=== PATIENT | female | born 1965 | race Caucasian/White ===

== ENCOUNTER 2016-07-06 06:58 | Outpatient (CLI) | payer OTHER | END 2016-07-06 06:59 | disposition home or self-care (01) | DX: E78.5 Hyperlipidemia, unspecified (principal); E03.9 Hypothyroidism, unspecified ==

== ENCOUNTER 2016-08-22 08:45 | Outpatient (CLI) | payer OTHER | END 2016-08-22 08:46 | disposition home or self-care (01) | DX: G47.33 Obstructive sleep apnea (adult) (pediatric) (principal) ==

== ENCOUNTER 2016-11-13 15:47 | Outpatient (CLI) | payer OTHER | END 2016-11-13 15:48 | disposition home or self-care (01) | LOC: SC 15:47 | PROVIDERS: ATTEND Nurse Practitioner Family | DX: G47.33 Obstructive sleep apnea (adult) (pediatric) (principal) | CPT/HCPCS: 99212; 99214 ==

== ENCOUNTER 2017-04-23 07:04 | Outpatient (CLI) | payer OTHER ==
--- NOTE | 2017-04-24 10:25 | Mammography Report ---
DIGITAL SCREENING MAMMOGRAM: 04/23/2017 COMPARISON: 10/24/2015, 08/20/2012, 03/01/2011, 10/24/2009. TECHNIQUE: Bilateral digital CC and MLO projections. FINDINGS: There is extensive fatty replacement of the breast tissue. There is no dominant mass, arch itectural distortion, skin thickening, suspicious microcalcifications, or interval change. IMPRESSION: NEGATIVE. BIRADS CATEGORY 1-NEGATIVE. RECOMMENDATION: SUGGEST RETURN TO ROUTINE SCREENING IN 12 MONTHS. STANDARD QUALIFYING STATEMENTS 1. This examination was reviewed with the aid of Computer-Aided Detection (CAD). 2. A negative or benign imaging report should not delay biopsy if clinically suspicious findings are present. Consider surgical consultation if warranted. More than 5% of cancers are not identified by i maging. 3. Dense breasts may obscure an underlying neoplasm. JOB #: [id number] EXT JOB #:[id number]
== END 2017-04-23 07:05 | disposition home or self-care (01) ==
LOC: DI 07:04
PROVIDERS: ATTEND Family Medicine
DX: Z12.31 Encounter for screening mammogram for malignant neoplasm of breast (principal)
CPT/HCPCS: 77067

== ENCOUNTER 2017-09-02 07:17 | Outpatient (CLI) | payer OTHER ==
[2017-09-02 07:41] LABS: BASOPHILS # (AUTO) 0.1 10^3/uL (0.0-0.1); BASOPHILS % (AUTO) 1.1 %; EOSINOPHILS # (AUTO) 0.2 10^3/uL (0.0-0.7); EOSINOPHILS % (AUTO) 3.3 %; HGB - HEMOGLOBIN 12.8 g/dL (12.0-16.0); LYMPHOCYTES # (AUTO) 1.3 10^3/uL (1.5-3.5); LYMPHOCYTES % (AUTO) 21.7 %; MEAN CORPUSCULAR HEMOGLOBIN 29.8 pg (27.0-31.0); MEAN CORPUSCULAR HGB CONC 33.7 g/dL (32.0-36.0); MEAN CORPUSCULAR VOLUME 88.4 fL (81.0-99.0); MEAN PLATELET VOLUME 11.7 fL (7.9-10.8); MONOCYTES # (AUTO) 0.5 10^3/uL (0.0-1.0); MONOCYTES % (AUTO) 8.4 %; NEUTROPHILS # (AUTO) 3.8 10^3/uL (1.5-6.6); NEUTROPHILS % (AUTO) 65.5 %; PLT - PLATELET COUNT 142 10^3/uL (130-450); RED BLOOD COUNT 4.31 10^6/uL (4.20-5.40); RED CELL DISTRIBUTION WIDTH 13.3 % (12.0-15.0); WHITE BLOOD COUNT 5.8 x10^3/uL (4.8-10.8)
[2017-09-02 08:02] LABS: ALBUMIN/GLOBULIN RATIO 1.1 (1.0-2.2); ALKALINE PHOSPHATASE 55 IU/L (42-121); ALT ALANINE AMINOTRANSFERASE 23 IU/L (10-60); AST ASPARTATE AMINOTRANSFERASE 20 IU/L (10-42); BILIRUBIN,TOTAL 0.9 mg/dL (0.2-1.0); BUN - BLOOD UREA NITROGEN 17 mg/dL (6-20); CALCIUM 9.1 mg/dL (8.5-10.3); CARBON DIOXIDE - CO2 23 mmol/L (21-32); CHLORIDE 104 mmol/L (101-111); CHOL/HDL RATIO 4.6 (<4.4); CHOLESTEROL 185 mg/dL; CREATININE 0.7 mg/dL (0.4-1.0); GFR - MDRD 88 (>89); GLUCOSE 109 mg/dL (70-100); HDL CHOLESTEROL 40 mg/dL; LDL CHOLESTEROL,CALCULATED 119 mg/dL; SODIUM 135 mmol/L (135-145); TOTAL PROTEIN 7.7 g/dL (6.7-8.2); VLDL CHOLESTEROL 26 mg/dL
[2017-09-02 10:06] LABS: THYROID STIMULATING HORMONE 3.6 uIU/mL (0.34-5.60)
[2017-09-02 10:09] LABS: FREE T4 (FREE THYROXINE) 1.06 ng/dL (0.58-1.64)
== END 2017-09-02 07:18 | disposition home or self-care (01) ==
LOC: LAB 07:17
PROVIDERS: ATTEND Family Medicine
DX: Z00.00 Encounter for general adult medical examination without abnormal findings (principal); I10 Essential (primary) hypertension; E78.5 Hyperlipidemia, unspecified; E03.9 Hypothyroidism, unspecified
CPT/HCPCS: 36415; 80053; 80061; 83721; 84439; 84443; 85025

== ENCOUNTER 2017-09-27 11:21 | Outpatient (CLI) | payer OTHER | END 2017-09-27 11:22 | disposition home or self-care (01) | LOC: DI 11:21 | PROVIDERS: ATTEND Family Medicine | DX: I10 Essential (primary) hypertension (principal); I51.7 Cardiomegaly | CPT/HCPCS: 93306 ==

== ENCOUNTER 2018-01-27 13:44 | Outpatient (CLI) | payer OTHER | END 2018-01-27 13:45 | disposition home or self-care (01) | LOC: SC 13:44 | PROVIDERS: ATTEND Nurse Practitioner Family | DX: G47.33 Obstructive sleep apnea (adult) (pediatric) (principal) | CPT/HCPCS: 99212; 99214 ==

== ENCOUNTER 2018-06-20 07:37 | Outpatient (CLI) | payer BC ==
[2018-06-20 08:33] LABS: ALBUMIN 4.2 g/dL (3.2-5.5); ALBUMIN/GLOBULIN RATIO 1.1 (1.0-2.2); ALKALINE PHOSPHATASE 56 IU/L (42-121); ALT ALANINE AMINOTRANSFERASE 40 IU/L (10-60); AST ASPARTATE AMINOTRANSFERASE 33 IU/L (10-42); BILIRUBIN,TOTAL 0.7 mg/dL (0.2-1.0); BUN - BLOOD UREA NITROGEN 18 mg/dL (6-20); CALCIUM 9.7 mg/dL (8.5-10.3); CARBON DIOXIDE - CO2 25 mmol/L (21-32); CHLORIDE 102 mmol/L (101-111); CHOL/HDL RATIO 4.3 (<4.4); CHOLESTEROL 213 mg/dL; CREATININE 0.8 mg/dL (0.4-1.0); GFR - MDRD 75 (>89); GLUCOSE 105 mg/dL (70-100); HDL CHOLESTEROL 50 mg/dL; LDL CHOLESTEROL,CALCULATED 142 mg/dL; LDL/HDL RATIO 2.8 (<4.4); SODIUM 136 mmol/L (135-145); TOTAL PROTEIN 8.1 g/dL (6.7-8.2); VLDL CHOLESTEROL 21 mg/dL
== END 2018-06-20 07:38 | disposition home or self-care (01) ==
LOC: LAB 07:37
PROVIDERS: ATTEND Family Medicine
DX: E78.5 Hyperlipidemia, unspecified (principal); E03.9 Hypothyroidism, unspecified
CPT/HCPCS: 36415; 80053; 80061; 83721; 84443

== ENCOUNTER 2019-06-06 05:32 | Emergency (ER) | payer BC ==
[2019-06-06] MEDS ORDERED: HYDROmorphone 1 MG/ML CARPUJECT IVP STA (06:46)
[2019-06-06] MEDS ORDERED: ONDANSETRON 4 MG/2 ML VIAL IVP STA (06:46)
[2019-06-06] MEDS ORDERED: SODIUM CHLORIDE 0.9% 1,000 ML IV STA (06:46)
[2019-06-06 07:04] LABS: BASOPHILS # (AUTO) 0.1 10^3/uL (0.0-0.1); EOSINOPHILS # (AUTO) 0.3 10^3/uL (0.0-0.7); EOSINOPHILS % (AUTO) 3.5 %; HGB - HEMOGLOBIN 13.8 g/dL (12.0-16.0); LYMPHOCYTES # (AUTO) 1.3 10^3/uL (1.5-3.5); LYMPHOCYTES % (AUTO) 18.4 %; MEAN CORPUSCULAR HEMOGLOBIN 29.7 pg (27.0-31.0); MEAN CORPUSCULAR HGB CONC 32.5 g/dL (32.0-36.0); MEAN CORPUSCULAR VOLUME 91.4 fL (81.0-99.0); MEAN PLATELET VOLUME 13.6 fL (7.9-10.8); MONOCYTES # (AUTO) 0.6 10^3/uL (0.0-1.0); MONOCYTES % (AUTO) 7.9 %; NEUTROPHILS # (AUTO) 4.9 10^3/uL (1.5-6.6); NEUTROPHILS % (AUTO) 68.6 %; PLT - PLATELET COUNT 173 10^3/uL (130-450); RED BLOOD COUNT 4.64 10^6/uL (4.20-5.40); RED CELL DISTRIBUTION WIDTH 12.9 % (12.0-15.0); WHITE BLOOD COUNT 7.2 x10^3/uL (4.8-10.8)
[2019-06-06 07:21] LABS: CALCIUM 9.7 mg/dL (8.5-10.3); CREATININE 0.8 mg/dL (0.4-1.0)
--- NOTE | 2019-06-06 07:54 | CT Report ---
Reason: headache Procedure Date: 06/06/2019 Accession Number: [id number] / [id number] Procedure: CT - HEAD WO CPT Code: Preliminary Report FULL RESULT: EXAM: CT HEAD EXAM DATE: 06/06/2019 07:27 AM. CLINICAL HISTORY: Headache. COMPARISON: None. TECHNIQUE: Multiaxial CT images were obtained from the foramen magnum to the vertex. Reformats: Sagittal and coronal. IV contrast: None. In accordance with CT protocol optimization, one or more of the following dose reduction techniques were utilized for this exam: automated exposure control, adjustment of mA and/or KV based on patient size, or use of iterative reconstructive technique. Findings: Relevant images are indicated (image number, series number). There is no hemorrhage, mass or midline shift. There is no significant cortical atrophy. There is no white matter disease. Ventricles are not dilated. Direct right cyst at the torcula, benign finding. Orbital contents negative. Basal cisterns unremarkable. Paranasal sinuses, mastoid air cells are unremarkable. Skull base intact, calvarium intact/unremarkable. Impressions: 1. Negative as detailed. RADIA
[2019-06-06] MEDS ORDERED: KETOROLAC 30 MG/ML VIAL IVP STA (08:36)
--- NOTE | 2019-06-06 08:36 | ED Physician Documentation ---
PD HPI HEADACHE - Stated complaint Stated Complaint: VOMITING - Chief complaint Chief Complaint: Abd Pain - History obtained from History obtained from: Patient - History of Present Illness Timing - onset: Yesterday (21:00) Timing - onset during: Rest Timing - details: Gradual onset, Constant Pain level now: 8 Location: Back, Right, Left Quality: Throbbing, Aching Associated symptoms: Nausea, Vomiting. No: Fever, Weakness, Numbness, Vision changes Improved by: Dark room Worsened by: Light Contributing factors: No: Anticoagulated Similar symptoms before: No diagnosis Recently seen: Not recently seen Review of Systems Constitutional: reports: Reviewed and negative Eyes: reports: Photophobia. denies: Loss of vision, Decreased vision GI: reports: Nausea, Vomiting. denies: Abdominal Pain Musculoskeletal: denies: Neck pain Neurologic: reports: Headache. denies: Generalized weakness, Focal weakness, Numbness PD PAST MEDICAL HISTORY - Past Medical History Past Medical History: Yes Cardiovascular: Hypertension, High cholesterol, Murmur Endocrine/Autoimmune: HyPOthyroidism, Other - Past Surgical History Past Surgical History: Yes General: Other - Present Medications Home Medications: Ambulatory Orders Medication Instructions Recorded Confirmed Amoxicillin/Potassium Clav 1 tab PO BID 04/10/14 04/10/14 [Augmentin 875-125 Tablet] Azithromycin [Zithromax] 250 mg PO DAILY #6 tablet 04/10/14 Levothyroxine [Synthroid] 200 mcg PO DAILY 04/10/14 04/10/14 Promethazine [Phenergan] 25 mg PO Q6H PRN #15 tab 04/10/14 Hydrocodone/Acetaminophen 1 - 2 each PO Q6H PRN #14 tablet 06/06/19 [Hydrocodon-Acetaminophen 5-325] Ondansetron Odt [Zofran] 4 mg TL Q6H PRN #14 tablet 06/06/19 - Allergies Allergies/Adverse Reactions: Allergies Allergy/AdvReac Type Severity Reaction Status Date / Time No Known Drug Allergies Allergy Verified 06/06/19 05:39 - Social History Does the pt smoke?: No Smoking Status: Never smoker Does the pt drink ETOH?: Yes Does the pt have substance abuse?: No - Immunizations Immunizations are current?: Yes - POLST Patient has POLST: Yes PD ED PE NORMAL - Vitals Vital signs reviewed: Yes - General General: Alert and oriented X 3, No acute distress, Well developed/nourished - HEENT HEENT: PERRL, EOMI - Neck Neck: Supple, no meningeal sign - Cardiac Cardiac: RRR, No murmur - Respiratory Respiratory: No respiratory distress, Clear bilaterally - Neuro Neuro: Alert and oriented X 3, director appointment 2-12 intact, No motor deficit, No sensory deficit, Normal speech Eye Opening: Spontaneous Motor: Obeys Commands Verbal: Oriented GCS Score: 15 Results - Vitals Vitals: Oxygen O2 Source Room air - Labs Labs: Laboratory Tests 06/06/19 06/06/19 06:55 06:55 WBC 7.2 RBC 4.64 Hgb 13.8 Hct 42.4 MCV 91.4 MCH 29.7 MCHC 32.5 RDW 12.9 Plt Count 173 MPV 13.6 H Neut # (Auto) 4.9 Lymph # (Auto) 1.3 L [place] # (Auto) 0.6 Eos # (Auto) 0.3 Baso # (Auto) 0.1 Absolute Nucleated RBC 0.00 Nucleated RBC % 0.0 Sodium 139 Potassium 4.3 Chloride 104 Carbon Dioxide 23 Anion Gap 12.0 BUN 15 Creatinine 0.8 Estimated GFR (MDRD) 75 L Glucose 153 H Calcium 9.7 - Rads (name of study) CT head Radiology: Prelim report reviewed, See rad report PD MEDICAL DECISION MAKING - ED course Complexity details: reviewed results, re-evaluated patient, considered differential, d/w patient ED course: on reevaluation, after tests resulted, patient is in NAD and reports significant improvement in symptoms. results d/w patient including arachnoid cyst on CT. no previous CT available for comparison, and patient does not recall ever having this test performed before. this finding can be followed up in outpatient setting. Departure - Departure Disposition: 01 Home, Self Care Clinical Impression: Arachnoid cyst Headache Qualifiers: Headache type: unspecified Headache chronicity pattern: acute headache Intractability: not intractable Qualified Code(s): R51 - Headache Condition: Good Instructions: ED Cephalgia Unspecified Follow-Up: Madisyn Bray MD [Primary Care Provider] - Prescriptions: Hydrocodone/Acetaminophen [Hydrocodon-Acetaminophen 5-325] 1 - 2 each PO Q6H PRN #14 tablet PRN Reason: pain Ondansetron Odt [Zofran] 4 mg TL Q6H PRN #14 tablet PRN Reason: Nausea / Vomiting Comments: The CT scan of your head shows a benign cyst called arachnoid cyst. While this is a benign finding (not a malignancy), it could be contributing to, or causing, your headache. If your headache continue or progress, your doctor might order further tests and other treatment might be necessary. Most patients with this finding do not have symptoms, and of those who do (headache is the most common symptom), most do not need treatment beyond control of the symptoms. As we discussed, you should follow up with doctor even if your headache resolves Discharge Date/Time: 06/06/19 09:10
[2019-06-06 08:58] VITALS: BP 138/79
== END 2019-06-06 09:10 | disposition home or self-care (01) ==
LOC: ED 05:32
DX: G93.0 Cerebral cysts (principal); R51 Headache; I10 Essential (primary) hypertension
CPT/HCPCS: 36415; 70450; 80048; 85025; 96361; 96374; 96375; 99284; J1170

== ENCOUNTER 2019-10-08 16:38 | Outpatient (CLI) | payer BC ==
--- NOTE | 2019-10-08 16:32 | SLEEP CARE CONSULTATION ---
Information from patient questionnaire entered by Gnei Henriquez. I have reviewed and concur with the information entered by Geni Henriquez. This document represents the service I personally performed and the decisions made by me, Deedee Mensah, RN, MSN, [employer]. History of Present Illness Service Date and Time: 10/08/2019 1600 Previous diagnosis: Moderate, Obstructive Sleep Apnea-Hypopnea Syndrome AHI: 15.8 (in 2009) Reason for follow up: annual (last seen 2018) Equipment type: CPAP Equipment obtained from: [facility] (needs new prescription) Mask style: Nasal pillows Backup mask available: Yes (old mask ) Last cushion change: 2 months Prior sleep studies: Yes Year and Where: 2009 - [facility] Sleep Type of Sleep Study: Polysomnography CPAP Compliance Data - Data Reviewed with Patient Average duration of nightly device use: 8.5 Compliance rate %: 99.4 (180 days) Current pressure setting (cmH2O): 9 Humidity settin Heated hose settin Average residual AHI: 1.4 Average large leak: 3 min 14 sec Subjective Patient concerns: reports: mask leak noise (occasional when mask needs changed), dry mouth, nose, throat (waking with dry mouth - 2 to 3 times a weeks for last few months ). denies: aerophagia, mask discomfort, air blowing in eyes, condensation in mask/hose, nasal congestion, epistaxis, other Observed to snore while using device: No (sleeps alone ) Current pressure setting perceived as: comfortable On therapy, patient: reports: sleeping better, awakening more refreshed, being more awake and alert during the day, more rested overall. denies: drowsiness while driving Initial [place] Sleepiness Scale score: 7 (in 2009) Allergies and Home Medications Home medication list reviewed: No (increased statin dose ) Review of Systems Review of systems same as previous: Yes Physical Exam Height: 5 ft 8 in Weight: 290 lb (home weight) Body Mass Index: 44.1 BMI Classification: Morbidly Obese Impression and Plan 1. Obstructive Sleep Apnea-Hypopnea Syndrome, moderate, with good treatment compliance and good apnea control. On CPAP therapy, the patient has better sleep quality and is more rested overall. Patient is pleased with benefit of treatment. Her oral dryness can be reduced by adjusting heated hose lower or by adjusting both settings with rationale discussed why to change. Patient advised that chronic oral dryness can affect dental health and advised to follow up with dentist. In addition, there are oral dryness products that can be used to reduce dryness such as Biotene products, Dry mouth rinse and Xylomelts. Patient to discuss best option with dentist.Patient has maintained her weight. Currently patients BMI is 44.8 obesity class . I counseled patient of how obesity increases the risk of apnea, CPAP pressure requirements and overall health risks especially cardiovascular and diabetes. Thus patient is advised to lose weight. She has struggled to lose weight. I explained how the right president sales and marketing can be helpful in achieving optimal weight loss goals. I have had several patients benefit in reducing significant weight with president sales and marketing consult and on going coaching. Patient encouraged to discuss their weight loss goals with their PCP and consider a referral to a president sales and marketing. She agreed with plan. The patient's CPAP pressure was changed to 7-9 cmH2O to accommodate future weight loss. Symptoms to report for additional pressure adjustment discussed. Patient's apnea severity and rationale for treatment to reduce apnea, improve sleep quality and reduce cardiovascular and cerebrovascular events was reviewed. * Change to auto CPAP pressure to 7-9 cmH2O * Implement methods to reduce oral dryness. * Notify me if snoring with mask or feeling that the pressure is too much or too little * Attempt to lose weight * Follow up with PCP for president sales and marketing referral * Call this office if any problems using CPAP * Update supplies * Return for follow up in 1 year , or sooner if concerns arise Visit Type: Telehealth Video (to reduce risk of Covid 19 exposure) Video Type: [employer] Patient Location: Home Location of Provider: Home Patient agrees and consents to this telehealth visit type: Yes Patient agrees to have their insurance billed: Yes Time Spent with Patient (minutes): 13 Provider Statement: I spent 100% of the Telehealth Video Call with the patient with greater than 50% spent counseling the patient and coordination of care.
== END 2019-10-08 16:39 | disposition home or self-care (01) ==
LOC: SC 16:38
PROVIDERS: ATTEND Nurse Practitioner Family
DX: G47.33 Obstructive sleep apnea (adult) (pediatric) (principal); E66.01 Morbid (severe) obesity due to excess calories; Z68.41 Body mass index [BMI] 40.0-44.9, adult

== ENCOUNTER 2020-05-04 07:42 | Outpatient (CLI) | payer BC ==
[2020-05-04 08:30] LABS: BASOPHILS # (AUTO) 0.1 10^3/uL (0.0-0.1); BASOPHILS % (AUTO) 0.9 %; EOSINOPHILS # (AUTO) 0.2 10^3/uL (0.0-0.7); EOSINOPHILS % (AUTO) 3.7 %; HGB - HEMOGLOBIN 13.6 g/dL (12.0-16.0); LYMPHOCYTES # (AUTO) 1.2 10^3/uL (1.5-3.5); LYMPHOCYTES % (AUTO) 20.6 %; MEAN CORPUSCULAR HGB CONC 33.3 g/dL (32.0-36.0); MEAN CORPUSCULAR VOLUME 90.1 fL (81.0-99.0); MEAN PLATELET VOLUME 13.2 fL (7.9-10.8); MONOCYTES # (AUTO) 0.7 10^3/uL (0.0-1.0); NEUTROPHILS # (AUTO) 3.6 10^3/uL (1.5-6.6); NEUTROPHILS % (AUTO) 62.4 %; PLT - PLATELET COUNT 181 10^3/uL (130-450); RED BLOOD COUNT 4.54 10^6/uL (4.20-5.40); RED CELL DISTRIBUTION WIDTH 12.8 % (12.0-15.0); WHITE BLOOD COUNT 5.7 x10^3/uL (4.8-10.8)
[2020-05-04 08:43] LABS: ALBUMIN 4.2 g/dL (3.2-5.5); ALKALINE PHOSPHATASE 74 IU/L (42-121); ALT ALANINE AMINOTRANSFERASE 50 IU/L (10-60); AST ASPARTATE AMINOTRANSFERASE 39 IU/L (10-42); BUN - BLOOD UREA NITROGEN 17 mg/dL (6-20); CALCIUM 9.6 mg/dL (8.5-10.3); CARBON DIOXIDE - CO2 24 mmol/L (21-32); CHLORIDE 103 mmol/L (101-111); CHOL/HDL RATIO 3.5 (<4.4); CHOLESTEROL 166 mg/dL; CREATININE 0.7 mg/dL (0.4-1.0); GLUCOSE 106 mg/dL (70-100); HDL CHOLESTEROL 47 mg/dL; LDL CHOLESTEROL,CALCULATED 93 mg/dL; SODIUM 139 mmol/L (135-145); TOTAL PROTEIN 8.5 g/dL (6.7-8.2); VLDL CHOLESTEROL 26 mg/dL
[2020-05-04 08:53] LABS: THYROID STIMULATING HORMONE < 0.08 uIU/mL (0.34-5.60)
[2020-05-04 08:55] LABS: FREE T4 (FREE THYROXINE) 1.46 ng/dL (0.58-1.64)
[2020-05-04 12:45] LABS: HEMOGLOBIN A1c% 5.9 % (4.27-6.07)
== END 2020-05-04 07:43 | disposition home or self-care (01) ==
LOC: LAB 07:42
PROVIDERS: ATTEND Family Medicine
DX: R73.01 Impaired fasting glucose (principal); I10 Essential (primary) hypertension; E78.5 Hyperlipidemia, unspecified; E03.9 Hypothyroidism, unspecified
CPT/HCPCS: 36415; 80053; 80061; 83036; 83721; 84439; 84443; 85025

== ENCOUNTER 2020-05-16 13:09 | Emergency (ER) | payer BC ==
[2020-05-16] MEDS ORDERED: MECLIZINE 12.5 MG TABLET PO STA (14:18)
--- NOTE | 2020-05-16 14:20 | ED Physician Documentation ---
PD HPI FOCAL NEURO - Stated complaint Stated Complaint: DIZZINESS - Chief complaint Chief Complaint: Neuro - History obtained from History obtained from: Patient - History of Present Illness Timing - onset: How many days ago (3) Timing - duration: Days (3) Timing - details: Gradual onset, Intermittant Severity of deficit: Moderate Weakness: No: Face, Arm, Hand, Leg, Foot, Right, Left, Other Numbness: No: Face, Arm, Hand, Leg, Foot, Right, Left Associated symptoms: Other (room spinning) Baseline status: positive: A&OX3, ambulatory, indep - Additional information Additional information: 55-year-old female presents to the emergency department complaining of the room spinning for the past 3 days. Intermittent. Worse with movement. Better with remaining still. No recent illnesses. No fever. No cough. No numbness or tingling. No headache. No trauma. Has not taken anything for this. No changes to her medications. Does not feel lightheaded. Does not feel near syncopal. No difficulty with walking. Review of Systems Ten Systems: 10 systems reviewed and negative Constitutional: denies: Fever, Chills Cardiac: denies: Chest pain / pressure Respiratory: denies: Cough GI: denies: Abdominal Pain, Nausea, Vomiting, Diarrhea Skin: denies: Rash Musculoskeletal: denies: Neck pain, Back pain Neurologic: denies: Headache PD PAST MEDICAL HISTORY - Past Medical History Cardiovascular: Hypertension, High cholesterol, Murmur Endocrine/Autoimmune: HyPOthyroidism, Other - Past Surgical History Past Surgical History: Yes General: Other - Present Medications Home Medications: Ambulatory Orders Medication Instructions Recorded Confirmed Levothyroxine [Synthroid] 175 mcg PO DAILY 04/10/14 05/16/20 Promethazine [Phenergan] 25 mg PO Q6H PRN #15 tab 04/10/14 05/16/20 Hydrochlorothiazide 12.5 mg PO DAILY 05/16/20 05/16/20 Losartan [Cozaar] 50 mg PO DAILY 05/16/20 05/16/20 Meclizine HCl [Antivert] 25 mg PO Q6HR PRN #20 tablet 05/16/20 Metoprolol Succinate [Toprol Xl] 25 mg PO DAILY 05/16/20 05/16/20 Simvastatin [Zocor] 40 mg ORAL DAILY 05/16/20 05/16/20 Venlafaxine ER [Effexor ER] 37.5 mg PO DAILY 05/16/20 05/16/20 - Allergies Allergies/Adverse Reactions: Allergies Allergy/AdvReac Type Severity Reaction Status Date / Time No Known Drug Allergies Allergy Verified 05/16/20 13:28 - Social History Does the pt smoke?: No Smoking Status: Never smoker Does the pt drink ETOH?: Yes Does the pt have substance abuse?: No - Immunizations Immunizations are current?: Yes - POLST Patient has POLST: Yes PD ED PE NORMAL - Vitals Vital signs reviewed: Yes - General General: Alert and oriented X 3, No acute distress, Well developed/nourished - HEENT HEENT: PERRL, Ears normal, Moist mucous membranes, Pharynx benign - Neck Neck: Supple, no meningeal sign, No bony TTP, No adenopathy - Cardiac Cardiac: RRR - Respiratory Respiratory: No respiratory distress, Clear bilaterally - Abdomen Abdomen: Soft, Non tender, Non distended - Derm Derm: Warm and dry - Extremities Extremities: Normal ROM s pain, No edema - Neuro Neuro: Alert and oriented X 3, fryer operator 2-12 intact, No motor deficit, No sensory deficit, Normal speech, Other (Positive horizontal nystagmus to the left.) Eye Opening: Spontaneous Motor: Obeys Commands Verbal: Oriented GCS Score: 15 - Psych Psych: Normal mood, Normal affect, Other (Normal cerebellar testing) NIHSS - Time Time: 14:12 - Level of Consciousness Level of consciousness: (0) Alert, Keenly responsive LOC Questions: (0) Answers both Q's correct LOC Commands: (0) Performs both correctly - Gaze Best Gaze: (0) Normal - Visual Visual: (0) No loss - Facial Palsy Facial Palsy: (0) Normal, symmetrical movement - Motor Arms (both separate) Motor Arm (right): (0) No drift Motor Arm (left): (0) No drift - Motor Legs (both separate) Motor Leg (right): (0) No drift Motor Leg (left): (0) No drift - Limb Ataxia Limb Ataxia: (0) Absent - Sensory Sensory: (0) Normal - Best Language Best Language: (0) No aphasia - Dysarthria Dysarthria: (0) Normal - Extinction and Inattention (formally neg Extinction and inattention: (0) No abnormality - Total Score/Results Total Score/Result: 0 Results - Vitals Vitals: Vital Signs - 24 hr 05/16/ 13:28 Temperature 37 C Heart Rate 69 Respiratory 18 Rate Blood Pressure 134/80 H O2 Saturation 98 Oxygen O2 Source Room air PD MEDICAL DECISION MAKING - ED course Complexity details: re-evaluated patient, considered differential, d/w patient ED course: Symptoms improved with meclizine. No evidence of cerebellar stroke. No other focal neurological deficits. No rotary or vertical nystagmus. We will place on meclizine for home and have her follow-up with her doctor for further care. Patient counseled regarding signs and symptoms for which I believe and urgent re-evaluation would be necessary. Patient with good understanding of and agreement to plan and is comfortable going home at this time This document was made in part using voice recognition software. While efforts are made to proofread this document, sound alike and grammatical errors may occur. Departure - Departure Disposition: 01 Home, Self Care Clinical Impression: Vertigo Condition: Good Instructions: ED Vertigo Unspecified Follow-Up: Madisyn Bray MD [Primary Care Provider] - Prescriptions: Meclizine HCl [Antivert] 25 mg PO Q6HR PRN #20 tablet PRN Reason: Vertigo Comments: You can use the meclizine as needed for the vertigo. This should improve over the next few days. You can also try the half somersault maneuver or Rob maneuver at home. Return if you worsen
[2020-05-16 15:13] VITALS: BP 147/88
== END 2020-05-16 15:37 | disposition home or self-care (01) ==
LOC: ED 13:09
DX: R42 Dizziness and giddiness (principal); I10 Essential (primary) hypertension
CPT/HCPCS: 99282; 99284; A9270

== ENCOUNTER 2020-08-12 14:27 | Outpatient (CLI) | payer BC | END 2020-08-12 14:28 | disposition critical access hospital (66) | LOC: EMS 14:27 | PROVIDERS: ATTEND Emergency Medicine | DX: R07.9 Chest pain, unspecified (principal); R61 Generalized hyperhidrosis; R42 Dizziness and giddiness | CPT/HCPCS: A0425; A0429 ==

== ENCOUNTER 2020-08-12 14:39 | Emergency (ER) | payer BC ==
--- NOTE | 2020-08-12 14:50 | ED Physician Documentation ---
PD HPI CHEST PAIN - Stated complaint Stated Complaint: CP - Chief complaint Chief Complaint: Cardiac - History obtained from History obtained from: Patient, EMS - History of Present Illness Timing - onset: Today Timing - onset during: Light activity Timing - duration: Minutes (15) Timing - details: Abrupt onset Pain level max: 6 Pain level now: 0 Quality: Pressure, Tightness Location: Substernal Radiation: No: Jaw, Neck, Back, Abdominal, Left upper extremity, Right upper extremity Improved by: ASA Worsened by: No: Exertion, Inspiration, Eating, Movement, Palpation, Position Associated symptoms: Shortness of air, Nausea, Feeling faint / dizzy. No: Diaphoresis, Vomiting, General Weakness, Palpitations, Cough Similar symptoms before: Has not had sx before - Additional information Additional information: Patient is a 55-year-old female who presents to the emergency department with abrupt onset of chest pain, midline, nonradiating. Lasted about 15 minutes. Occurred while she was cooking dinner today. Resolved with aspirin with EMS. No cardiac history of acute coronary syndrome, stents or bypass. No recent travel. She states that recently her mother . Nothing made the symptoms better or worse. 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 - Present Medications Home Medications: Ambulatory Orders Medication Instructions Recorded Confirmed Levothyroxine [Synthroid] 175 mcg PO DAILY 04/10/14 08/12/20 Hydrochlorothiazide 12.5 mg PO DAILY 05/16/20 08/12/20 Losartan [Cozaar] 50 mg PO DAILY 05/16/20 08/12/20 Metoprolol Succinate [Toprol Xl] 25 mg PO DAILY 05/16/20 08/12/20 Simvastatin [Zocor] 40 mg ORAL DAILY 05/16/20 08/12/20 Venlafaxine ER [Effexor ER] 37.5 mg PO DAILY 05/16/20 08/12/20 - Allergies Allergies/Adverse Reactions: Allergies Allergy/AdvReac Type Severity Reaction Status Date / Time No Known Drug Allergies Allergy Verified 05/16/20 13:28 - Social History Does the pt smoke?: No Smoking Status: Never smoker Does the pt drink ETOH?: Yes Does the pt have substance abuse?: No - Immunizations Immunizations are current?: Yes - POLST Patient has POLST: Yes PD ED PE NORMAL - Vitals Vital signs reviewed: Yes - General General: Alert and oriented X 3, No acute distress - HEENT HEENT: PERRL, Moist mucous membranes - Neck Neck: Supple, no meningeal sign - Cardiac Cardiac: RRR, Strong equal pulses - Respiratory Respiratory: No respiratory distress, Clear bilaterally - Abdomen Abdomen: Soft, Non tender, Non distended - Derm Derm: Warm and dry - Extremities Extremities: No edema, No calf tenderness / cord - Neuro Neuro: Alert and oriented X 3 - Psych Psych: Normal mood, Normal affect Results - Vitals Vitals: Vital Signs - 24 hr 08/12/20 08/12/20 08/12/20 14:39 15:29 16:49 Temperature 36.7 C Heart Rate 80 83 80 Respiratory 25 H 22 18 Rate Blood Pressure 142/63 H 113/58 L 104/72 O2 Saturation 98 98 99 Oxygen O2 Source Room air - EKG (time done) 1441 Rate: Rate (enter#) (68) Rhythm: NSR [place]: Normal Intervals: Prolonged [place] QRS: Normal, LVH - Labs Labs: Laboratory Tests 08/12/20 08/12/20 08/12/20 15:06 15:06 15:06 WBC 7.5 RBC 4.63 Hgb 13.8 Hct 41.8 MCV 90.3 MCH 29.8 MCHC 33.0 RDW 12.5 Plt Count 182 MPV 13.0 H Neut # (Auto) 5.0 Lymph # (Auto) 1.5 [place] # (Auto) 0.7 Eos # (Auto) 0.2 Baso # (Auto) 0.0 Absolute Nucleated RBC 0.00 Nucleated RBC % 0.0 Sodium 138 Potassium 2.7 L Chloride 97 L Carbon Dioxide 31 Anion Gap 10.0 BUN 15 Creatinine 0.7 Estimated GFR (MDRD) 87 L Glucose 111 H Calcium 9.9 Total Bilirubin 0.4 AST 28 ALT 34 Alkaline Phosphatase 75 Troponin I High Sens 7.1 Total Protein 8.6 H Albumin 4.3 Globulin 4.3 H Albumin/Globulin Ratio 1.0 Lipase 35 08/12/20 16:53 WBC RBC Hgb Hct MCV MCH MCHC RDW Plt Count MPV Neut # (Auto) Lymph # (Auto) [place] # (Auto) Eos # (Auto) Baso # (Auto) Absolute Nucleated RBC Nucleated RBC % Sodium Potassium Chloride Carbon Dioxide Anion Gap BUN Creatinine Estimated GFR (MDRD) Glucose Calcium Total Bilirubin AST ALT Alkaline Phosphatase Troponin I High Sens 8.7 Total Protein Albumin Globulin Albumin/Globulin Ratio Lipase - Rads (name of study) cxr Radiology: Prelim report reviewed, EMP read contemporaneously, See rad report (no acute abnormalities) PD MEDICAL DECISION MAKING - ED course Complexity details: reviewed results, re-evaluated patient, considered differential (No ST elevation [place], no aortic dissection, no PE, no tension pneumothorax, no aortic aneurysm), d/w patient ED course: 55-year-old female with chest pain. No acute findings on laboratory testing, chest x-ray or EKG. Asymptomatic currently. Negative troponin x2. We will have her follow-up with her doctor for a cardiac stress test and start her on a baby aspirin. Did discuss observation, patient is comfortable going home at this time. Patient counseled regarding signs and symptoms for which I believe and urgent re-evaluation would be necessary. Patient with good understanding of and agreement to plan and is comfortable going home at this time This document was made in part using voice recognition software. While efforts are made to proofread this document, sound alike and grammatical errors may occur. Departure - Departure Disposition: 01 Home, Self Care Clinical Impression: Hypokalemia Chest pain Qualifiers: Chest pain type: unspecified Qualified Code(s): R07.9 - Chest pain, unspecified Condition: Good Instructions: ED Chest Pain Atypical Unkn Cause Follow-Up: Madisyn Bray MD [Primary Care Provider] - Within 1 week Comments: You should start back on a baby aspirin daily and have a cardiac stress test with your doctor. Your potassium was slightly low today as well, 2.7, you should have this rechecked with your doctor next week as well. Return if you worsen Discharge Date/Time: 08/12/20 17:48
--- NOTE | 2020-08-12 15:06 | XRAY Report ---
PROCEDURE: Chest 1 View X-Ray INDICATIONS: Chest pain TECHNIQUE: One view of the chest was acquired. COMPARISON: 04/10/2014 FINDINGS: Surgical changes and devices: None. Lungs and pleura: No pleural effusions or pneumothorax. Lungs are clear. Mediastinum: Mediastinal contours appear normal. Heart size is normal. Bones and chest wall: No suspicious bony lesions. Overlying soft tissues appear unremarkable. IMPRESSION: No acute cardiopulmonary process demonstrated radiographically. Reviewed by: David Souza MD on 08/12/2020 3:05 PM PDT Approved by: David Souza MD on 08/12/2020 3:05 PM PDT Station ID: [id number]
[2020-08-12 15:16] LABS: BASOPHILS % (AUTO) 0.5 %; EOSINOPHILS # (AUTO) 0.2 10^3/uL (0.0-0.7); EOSINOPHILS % (AUTO) 2.7 %; HCT - HEMATOCRIT 41.8 % (37.0-47.0); HGB - HEMOGLOBIN 13.8 g/dL (12.0-16.0); LYMPHOCYTES # (AUTO) 1.5 10^3/uL (1.5-3.5); LYMPHOCYTES % (AUTO) 19.7 %; MEAN CORPUSCULAR HEMOGLOBIN 29.8 pg (27.0-31.0); MEAN CORPUSCULAR VOLUME 90.3 fL (81.0-99.0); MONOCYTES # (AUTO) 0.7 10^3/uL (0.0-1.0); MONOCYTES % (AUTO) 9.4 %; NEUTROPHILS % (AUTO) 67.4 %; PLT - PLATELET COUNT 182 10^3/uL (130-450); RED BLOOD COUNT 4.63 10^6/uL (4.20-5.40); RED CELL DISTRIBUTION WIDTH 12.5 % (12.0-15.0); WHITE BLOOD COUNT 7.5 x10^3/uL (4.8-10.8)
[2020-08-12 15:33] LABS: ALBUMIN 4.3 g/dL (3.2-5.5); BILIRUBIN,TOTAL 0.4 mg/dL (0.2-1.0); CALCIUM 9.9 mg/dL (8.5-10.3); CREATININE 0.7 mg/dL (0.4-1.0); POTASSIUM 2.7 mmol/L (3.5-5.0); TOTAL PROTEIN 8.6 g/dL (6.7-8.2)
[2020-08-12] MEDS ORDERED: POTASSIUM CHLORIDE 20 MEQ TABLET PO STA (16:04)
[2020-08-12 16:52] VITALS: BP 104/72
== END 2020-08-12 17:48 | disposition home or self-care (01) ==
LOC: EDUNIT# → ED 14:39 → SUPCPDRO 14:39 → ED 17:48
DX: R07.9 Chest pain, unspecified (principal); I10 Essential (primary) hypertension; E87.6 Hypokalemia
CPT/HCPCS: 36415; 71045; 80053; 83690; 84484; 85025; 93005; 99284; A9270

== ENCOUNTER 2020-10-03 10:17 | Outpatient (CLI) | payer BC ==
[2020-10-03 10:57] LABS: CALCIUM 9.2 mg/dL (8.5-10.3); CREATININE 0.6 mg/dL (0.4-1.0); POTASSIUM 4.3 mmol/L (3.5-5.0)
== END 2020-10-03 10:18 | disposition home or self-care (01) ==
LOC: LAB 10:17
PROVIDERS: ATTEND Family Medicine
DX: E87.6 Hypokalemia (principal)
CPT/HCPCS: 36415; 80048

== ENCOUNTER 2020-10-13 12:21 | Outpatient (CLI) | payer BC ==
[2020-10-13] MEDS ORDERED: AMINOPHYLLINE 500 MG/20 ML VIAL ONE (12:58)
[2020-10-13] MEDS ORDERED: REGADENOSON 0.4 MG/5 ML SYRINGE IVP ONE ×2 (12:58→15:06)
--- NOTE | 2020-10-13 13:49 | CARDIAC PROCEDURE NOTE ---
Stress Test Report Service Date: 10/13/20 Ordering Provider: Dr Madisyn Bray Indication for Test: Chest pain Cardiac Risk Factors: Morbid obesity, hypertension, hyperlipidemia, family history of early heart disease. Type of Stress Test: Pharmacologic Stress Test with MPI Pharmacologic Agent: Lexiscan Procedure: After signing informed consent, the patient underwent a pharmaceutical stress test using Lexiscan, along with a 2-day protocol of Nuclear myocardial perfusion imaging. Resting heart rate: 63 Peak heart rate: 85 Resting BP: 116/58 Peak BP: 137/57 Lexiscan was infused per protocol. The patient had a brief headache, shortness of breath and mild nausea. There was no chest pain. The symptoms subsided spontaneously and 2 minutes. Oxygen saturation was 95 to 97% on room air throughout the test. EKG: Normal sinus rhythm, rate 63, first-degree block, left IVCD. EKG at peak: New T wave flattening is seen in leads II, III, aVF and V4 through V6. These T wave changes revert to baseline after 3 minutes. Summary: 1) Abnormal resting EKG. 2) Significant T wave changes develop suggesting inferolateral ischemia, during this pharmaceutical stress. 3) Nuclear images were reported separately and showed: "Abnormal myocardial perfusion study demonstrating a small stress phase perfusion defect in the anterior wall, this region is obscured by breast attenuation artifact in the rest phase and is not certain whether the small defect is fixed or reversible. Finding could be secondary to small area of reversible ischemia or small prior infarct." Normal overall LVEF at rest and with stress. IMPRESSION: 1) Small area of possible coronary ischemia. 2) This patient's overall cardiac risk: High. RECOMMENDATIONS: 1) Referral to Cardiology and consider coronary angiography. 2) Aggressive risk factor management.
--- NOTE | 2020-10-14 14:18 | Nuclear Medicine Report ---
PROCEDURE: Rest and exercise myocardial perfusion SPECT with gated imaging and ejection fraction INDICATIONS: CHEST PAIN; LEXISCAN RADIOPHARMACEUTICAL: 19.6 mCi Tc-99m Myoview IV at rest and 20.7 mCi Tc-99m Myoview IV at peak exerc ise. Lvu-avl-segtporo was performed. TECHNIQUE: Radiopharmaceutical was injected at peak stress test, and also at rest. SPECT images wer e obtained. SPECT myocardial perfusion images were displayed in short axis, horizontal long axis, an d vertical long axis views. Gated images were reviewed using Auto[employer] software. COMPARISON: None available. CARDIAC STRESS: A standard pharmacologic stress test was performed by the patient under the supervision of an attendi staff. The patient received 0.4 mg Lexiscan IV. Hemodynamic data: There is normal blood pressure and heart rate response to pharmacologic stress. Symptoms: Patient denied chest pain during pharmacologic stress. EKG: No diagnostic EKG changes of ischemia; no ectopy. FINDINGS: Raw data: There is good myocardial labeling by radiotracer. No significant motion artifacts. Lung- to-heart ratio is 3.2 (normal is less than 0.46 for tetrafosmin tracer). Left ventricle function: Gated images demonstrate normal left ventricle wall thickening. No segment al wall motion abnormality. No transient ischemic dilation; TID is 0.94 (normal less than 1.30). Th e left ventricle resting end-diastolic volume is 116 mL. Left ventricle stress ejection fraction is 78%; normal values are above 45%. Myocardial perfusion: There is normal distribution of activity in the left and right ventricular jamar cardium. There is a fixed perfusion defect in the mid-anterior wall. The majority of the fixed perfus ion defect in the anterior wall demonstrates normalization in the prone position compatible with soft tissue attenuation artifact, however there is a small persistent perfusion defect in the anterior wa ll in the prone position which does not completely normalize that is compatible with an area of decre ased stress perfusion. No additional fixed or reversible perfusion defects. IMPRESSION: 1. Abnormal myocardial perfusion study demonstrating a small stress phase perfusion defect in the ant erior wall. This region of the anterior wall is obscured by breast attenuation artifact in the rest p hase and is not certain whether the small defect is fixed or reversible. Finding could be secondary t o small area of reversible ischemia or small prior infarct. 2. Normal left ventricular function with no segmental wall motion abnormalities and a normal stress L VEF of 78%. 3. Normal hemodynamic response to pharmacologic stress. PQRS ATTESTATIONS: Measure 322 - Is this imaging test primarily performed on a low-risk surgery patient for preoperative evaluation within 30 days preceding their low-risk non-cardiac surgery? Low-risk surgery is defined as cardiac or myocardial infarction less than 1%, including (but not limited to) endoscopic pr ocedures, superficial procedures, cataract surgery, and excisional breast surgery: Answer: No Measure 323 - Is this imaging test performed primarily for the monitoring of an asymptomatic patient who had percutaneous coronary intervention on the visit date or within 2 years of the visit date? An swer: No Measure 324 - Is this imaging test performed primarily for the initial detection and risk assessment on an asymptomatic, low coronary heart disease patient? Low CHD risk definition = clinicians should consider the maximum number of available patient factors used to estimate risk based on Hersey (A TP III criteria), typically age, gender, diabetes, smoking status, and use of blood pressure medicati on, and integrate age appropriate estimates for missing elements, such as LDL or standard blood press ure. Answer: No Reviewed by: Trang Turk MD, PhD on 10/14/2020 2:17 PM PDT Approved by: Trang Turk MD, PhD on 10/14/2020 2:17 PM PDT Station ID: [id number]
== END 2020-10-13 12:22 | disposition home or self-care (01) ==
LOC: DI 12:21
PROVIDERS: ATTEND Family Medicine
DX: R07.9 Chest pain, unspecified (principal); R94.31 Abnormal electrocardiogram [ECG] [EKG]; R94.39 Abnormal result of other cardiovascular function study
CPT/HCPCS: 78452; 93017; A9500; J2785

== ENCOUNTER 2020-10-19 07:49 | Outpatient (CLI) | payer BC ==
--- NOTE | 2020-10-19 08:20 | SLEEP CARE CONSULTATION ---
Information from patient questionnaire entered by Geni Henriquez. I have reviewed and concur with the information entered by Geni Henriquez. This document represents the service I personally performed and the decisions made by , Jemima Clinton ARNP. History of Present Illness Service Date and Time: 10/19/2020 0749 Previous diagnosis: Moderate, Obstructive Sleep Apnea-Hypopnea Syndrome AHI: 15.8 (in 2009) Reason for follow up: annual (last seen 09/2019) Equipment type: CPAP Equipment obtained from: [employer] (getting supplies as needed) Mask style: Nasal pillows Backup mask available: Yes (old mask) Last cushion change: 1 month Prior sleep studies: Yes Year and Where: 2009 - [facility] Sleep HPI additional information: RAMYA LEVY was diagnosed to have moderate, AHI 15.8, obstructive sleep apnea-hypopnea syndrome and returned today for CPAP therapy annual follow-up. CPAP Compliance Data - Data Reviewed with Patient Average duration of nightly device use: 8 hr 24 min Compliance rate %: 98.3 (180 days) Current pressure setting (cmH2O): 7-9 Humidity settin Heated hose settin Average residual AHI: 2.2 Average large leak: 2 min 18 sec Subjective Missed days of use due to: reports: family emergency Patient concerns: denies: aerophagia, mask discomfort, air blowing in eyes, mask leak noise, condensation in mask/hose, nasal congestion, dry mouth, nose, throat, epistaxis, other Observed to snore while using device: No (only if lay on her back) Current pressure setting perceived as: comfortable On therapy, patient: reports: sleeping better, awakening more refreshed, being more awake and alert during the day, more rested overall. denies: drowsiness while driving Initial [place] Sleepiness Scale score: 7 (in 2009) Current [place] Sleepiness Scale score: 5 Allergies and Home Medications Drug allergies reviewed: Yes (amoxicillin, Lisinopril) Home medication list reviewed: Yes Allergy and home medication list: Potassium chloride ER, daily Aspirin, 81 mg daily Review of Systems Review of systems same as previous: No (heart/chest pain x 1; mother ) Physical Exam Heart Rate: 72 O2 Saturation: 97 Height: 5 ft Weight: 302 lb Body Mass Index: 58.9 BMI Classification: Morbidly Obese Impression and Plan 1. Obstructive Sleep Apnea-Hypopnea Syndrome, moderate, with good treatment compliance and good apnea control. On CPAP therapy, the patient has better sleep quality and is more rested overall. She would like to have a portable device for travelling. I advised her that insurances do not normally cover these and that she may have to pay out of pocket for this device. She voiced understanding. Prescription made and she will look into getting this device. She had an incident of chest pain and was found to have low potassium shortly after her mother . 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 She will then try to increase her exercise based upon their recommendations and return to her efforts to lose weight. I advised her to follow her detective homicide squad r ecommendations. Patient's apnea severity and rationale for treatment to reduce apnea, improve sleep quality and reduce cardiovascular and cerebrovascular events was reviewed. I also reviewed the benefit of consistent device use of CPAP for hypertension, and depression. * Continue auto CPAP pressure at 7-9 cmH2O * Prescription for portable CPAP * Notify me if snoring with mask or feeling that the pressure is too much or too little * Attempt to lose weight * Call this office if any problems using CPAP * Return for follow up in 1 year, or sooner if concerns arise Counseling Topics: Spare mask, Weight loss health impact Visit Type: In Office Time Spent with Patient (minutes): 20 Provider Statement: I spent 100% of the Face to Face Visit with the patient with greater than 50% spent counseling the patient and coordination of care.
== END 2020-10-19 07:50 | disposition home or self-care (01) ==
LOC: SC 07:49
PROVIDERS: ATTEND Nurse Practitioner Family
DX: G47.33 Obstructive sleep apnea (adult) (pediatric) (principal); E66.01 Morbid (severe) obesity due to excess calories; Z68.43 Body mass index [BMI] 50.0-59.9, adult
CPT/HCPCS: 99212; 99213

== ENCOUNTER 2020-11-18 07:05 | Outpatient (CLI) | payer BC ==
[2020-11-18 07:39] LABS: BASOPHILS # (AUTO) 0.1 10^3/uL (0.0-0.1); BASOPHILS % (AUTO) 1.1 %; EOSINOPHILS # (AUTO) 0.2 10^3/uL (0.0-0.7); EOSINOPHILS % (AUTO) 3.9 %; HGB - HEMOGLOBIN 13.1 g/dL (12.0-16.0); LYMPHOCYTES # (AUTO) 1.4 10^3/uL (1.5-3.5); LYMPHOCYTES % (AUTO) 22.2 %; MEAN CORPUSCULAR HEMOGLOBIN 29.9 pg (27.0-31.0); MEAN CORPUSCULAR HGB CONC 33.6 g/dL (32.0-36.0); MEAN PLATELET VOLUME 13.3 fL (7.9-10.8); MONOCYTES # (AUTO) 0.6 10^3/uL (0.0-1.0); MONOCYTES % (AUTO) 9.6 %; NEUTROPHILS # (AUTO) 3.9 10^3/uL (1.5-6.6); NEUTROPHILS % (AUTO) 62.9 %; PLT - PLATELET COUNT 172 10^3/uL (130-450); RED BLOOD COUNT 4.38 10^6/uL (4.20-5.40); RED CELL DISTRIBUTION WIDTH 13.1 % (12.0-15.0); WHITE BLOOD COUNT 6.2 x10^3/uL (4.8-10.8)
[2020-11-18 07:57] LABS: ALBUMIN 4.2 g/dL (3.2-5.5); ALBUMIN/GLOBULIN RATIO 1.1 (1.0-2.2); ALKALINE PHOSPHATASE 75 IU/L (42-121); ALT ALANINE AMINOTRANSFERASE 32 IU/L (10-60); AST ASPARTATE AMINOTRANSFERASE 24 IU/L (10-42); BILIRUBIN,TOTAL 1.3 mg/dL (0.2-1.0); BUN - BLOOD UREA NITROGEN 23 mg/dL (6-20); CALCIUM 9.2 mg/dL (8.5-10.3); CARBON DIOXIDE - CO2 24 mmol/L (21-32); CHLORIDE 100 mmol/L (101-111); CHOL/HDL RATIO 4.1 (<4.4); CHOLESTEROL 199 mg/dL; CREATININE 0.9 mg/dL (0.4-1.0); GFR - MDRD 65 (>89); GLUCOSE 108 mg/dL (70-100); HDL CHOLESTEROL 49 mg/dL; LDL CHOLESTEROL,CALCULATED 123 mg/dL; LDL/HDL RATIO 2.5 (<4.4); SODIUM 136 mmol/L (135-145); TRIGLYCERIDES 137 mg/dL; VLDL CHOLESTEROL 27 mg/dL
[2020-11-18 08:06] LABS: THYROID STIMULATING HORMONE 0.37 uIU/mL (0.34-5.60)
[2020-11-18 08:08] LABS: FREE T4 (FREE THYROXINE) 1.23 ng/dL (0.58-1.64)
[2020-11-18 12:43] LABS: ESTIMATED AVERAGE GLUCOSE 131 mg/dL (70-100); HEMOGLOBIN A1c% 6.2 % (4.27-6.07)
== END 2020-11-18 07:06 | disposition home or self-care (01) ==
LOC: LAB 07:05
PROVIDERS: ATTEND Family Medicine
DX: E87.6 Hypokalemia (principal); R73.01 Impaired fasting glucose; I35.0 Nonrheumatic aortic (valve) stenosis; E78.5 Hyperlipidemia, unspecified; E03.9 Hypothyroidism, unspecified; F41.9 Anxiety disorder, unspecified; F32.9 Major depressive disorder, single episode, unspecified; I11.9 Hypertensive heart disease without heart failure
CPT/HCPCS: 36415; 80053; 80061; 83036; 83721; 84439; 84443; 85025

== ENCOUNTER 2021-02-09 07:30 | Outpatient (CLI) | payer BC ==
[2021-02-09 08:19] LABS: ALBUMIN 4.3 g/dL (3.2-5.5); ALBUMIN/GLOBULIN RATIO 1.1 (1.0-2.2); ALKALINE PHOSPHATASE 77 IU/L (42-121); ALT ALANINE AMINOTRANSFERASE 31 IU/L (10-60); AST ASPARTATE AMINOTRANSFERASE 25 IU/L (10-42); BILIRUBIN,TOTAL 0.9 mg/dL (0.2-1.0); BUN - BLOOD UREA NITROGEN 16 mg/dL (6-20); CALCIUM 9.3 mg/dL (8.5-10.3); CARBON DIOXIDE - CO2 26 mmol/L (21-32); CHLORIDE 102 mmol/L (101-111); CHOL/HDL RATIO 3.7 (<4.4); CHOLESTEROL 182 mg/dL; CREATININE 0.8 mg/dL (0.4-1.0); GFR - MDRD 74 (>89); GLUCOSE 120 mg/dL (70-100); HDL CHOLESTEROL 49 mg/dL; LDL CHOLESTEROL,CALCULATED 113 mg/dL; LDL/HDL RATIO 2.3 (<4.4); POTASSIUM 3.7 mmol/L (3.5-5.0); SODIUM 139 mmol/L (135-145); TOTAL PROTEIN 8.3 g/dL (6.7-8.2); TRIGLYCERIDES 99 mg/dL; VLDL CHOLESTEROL 20 mg/dL
[2021-02-09 08:30] LABS: BASOPHILS # (AUTO) 0.1 10^3/uL (0.0-0.1); BASOPHILS % (AUTO) 0.9 %; EOSINOPHILS # (AUTO) 0.2 10^3/uL (0.0-0.7); HCT - HEMATOCRIT 41.1 % (37.0-47.0); HGB - HEMOGLOBIN 13.2 g/dL (12.0-16.0); LYMPHOCYTES # (AUTO) 1.2 10^3/uL (1.5-3.5); LYMPHOCYTES % (AUTO) 17.9 %; MEAN CORPUSCULAR HEMOGLOBIN 29.1 pg (27.0-31.0); MEAN CORPUSCULAR HGB CONC 32.1 g/dL (32.0-36.0); MEAN CORPUSCULAR VOLUME 90.7 fL (81.0-99.0); MEAN PLATELET VOLUME 13.5 fL (7.9-10.8); MONOCYTES # (AUTO) 0.6 10^3/uL (0.0-1.0); MONOCYTES % (AUTO) 8.4 %; NEUTROPHILS # (AUTO) 4.7 10^3/uL (1.5-6.6); NEUTROPHILS % (AUTO) 68.8 %; PLT - PLATELET COUNT 189 10^3/uL (130-450); RED BLOOD COUNT 4.53 10^6/uL (4.20-5.40); RED CELL DISTRIBUTION WIDTH 12.9 % (12.0-15.0); WHITE BLOOD COUNT 6.8 x10^3/uL (4.8-10.8)
[2021-02-09 08:32] LABS: THYROID STIMULATING HORMONE 4.23 uIU/mL (0.34-5.60)
[2021-02-09 08:34] LABS: FREE T4 (FREE THYROXINE) 0.91 ng/dL (0.58-1.64)
[2021-02-09 13:33] LABS: ESTIMATED AVERAGE GLUCOSE 128 mg/dL (70-100); HEMOGLOBIN A1c% 6.1 % (4.27-6.07)
== END 2021-02-09 07:31 | disposition home or self-care (01) ==
LOC: LAB 07:30
PROVIDERS: ATTEND Family Medicine
DX: R73.01 Impaired fasting glucose (principal); E87.6 Hypokalemia; I11.9 Hypertensive heart disease without heart failure; I35.0 Nonrheumatic aortic (valve) stenosis; E78.5 Hyperlipidemia, unspecified; E03.9 Hypothyroidism, unspecified; F41.9 Anxiety disorder, unspecified; F32.9 Major depressive disorder, single episode, unspecified
CPT/HCPCS: 36415; 80053; 80061; 83036; 83721; 84439; 84443; 85025

== ENCOUNTER 2021-03-29 14:09 | Outpatient (CLI) | payer BC ==
[2021-03-29 14:46] LABS: ALBUMIN 4.3 g/dL (3.2-5.5); ALBUMIN/GLOBULIN RATIO 1.1 (1.0-2.2); ALKALINE PHOSPHATASE 74 IU/L (42-121); ALT ALANINE AMINOTRANSFERASE 28 IU/L (10-60); AST ASPARTATE AMINOTRANSFERASE 24 IU/L (10-42); BILIRUBIN,TOTAL 0.9 mg/dL (0.2-1.0); BUN - BLOOD UREA NITROGEN 25 mg/dL (6-20); CALCIUM 9.6 mg/dL (8.5-10.3); CARBON DIOXIDE - CO2 27 mmol/L (21-32); CHLORIDE 100 mmol/L (101-111); CHOLESTEROL 265 mg/dL; GFR - MDRD 58 (>89); GLUCOSE 103 mg/dL (70-100); HDL CHOLESTEROL 44 mg/dL; LDL CHOLESTEROL,CALCULATED 152 mg/dL; LDL/HDL RATIO 3.5 (<4.4); POTASSIUM 3.6 mmol/L (3.5-5.0); SODIUM 138 mmol/L (135-145); TOTAL PROTEIN 8.2 g/dL (6.7-8.2); TRIGLYCERIDES 344 mg/dL; VLDL CHOLESTEROL 69 mg/dL
[2021-03-29 14:57] LABS: THYROID STIMULATING HORMONE 1.26 uIU/mL (0.34-5.60)
[2021-03-29 20:16] LABS: ESTIMATED AVERAGE GLUCOSE 131 mg/dL (70-100); HEMOGLOBIN A1c% 6.2 % (4.27-6.07)
== END 2021-03-29 14:10 | disposition home or self-care (01) ==
LOC: LAB 14:09
PROVIDERS: ATTEND Family Medicine
DX: E78.5 Hyperlipidemia, unspecified (principal); R73.01 Impaired fasting glucose; E66.01 Morbid (severe) obesity due to excess calories; E03.9 Hypothyroidism, unspecified; I10 Essential (primary) hypertension
CPT/HCPCS: 36415; 80053; 80061; 83036; 83721; 84443

== ENCOUNTER 2021-04-07 08:03 | Outpatient (CLI) | payer BC ==
[2021-04-07 08:22] LABS: BASOPHILS # (AUTO) 0.1 10^3/uL (0.0-0.1); BASOPHILS % (AUTO) 0.9 %; EOSINOPHILS # (AUTO) 0.2 10^3/uL (0.0-0.7); EOSINOPHILS % (AUTO) 3.8 %; HGB - HEMOGLOBIN 13.2 g/dL (12.0-16.0); LYMPHOCYTES # (AUTO) 1.2 10^3/uL (1.5-3.5); LYMPHOCYTES % (AUTO) 22.3 %; MEAN CORPUSCULAR HEMOGLOBIN 29.5 pg (27.0-31.0); MEAN CORPUSCULAR HGB CONC 32.2 g/dL (32.0-36.0); MEAN CORPUSCULAR VOLUME 91.7 fL (81.0-99.0); MEAN PLATELET VOLUME 13.3 fL (7.9-10.8); MONOCYTES # (AUTO) 0.4 10^3/uL (0.0-1.0); MONOCYTES % (AUTO) 6.4 %; NEUTROPHILS # (AUTO) 3.7 10^3/uL (1.5-6.6); NEUTROPHILS % (AUTO) 66.2 %; PLT - PLATELET COUNT 182 10^3/uL (130-450); RED BLOOD COUNT 4.47 10^6/uL (4.20-5.40); RED CELL DISTRIBUTION WIDTH 13.4 % (12.0-15.0); WHITE BLOOD COUNT 5.5 x10^3/uL (4.8-10.8)
[2021-04-07 08:41] LABS: MAGNESIUM 1.9 mg/dL (1.7-2.8)
[2021-04-07 08:53] LABS: THYROID STIMULATING HORMONE 0.79 uIU/mL (0.34-5.60)
== END 2021-04-07 08:04 | disposition home or self-care (01) ==
LOC: LAB 08:03
PROVIDERS: ATTEND Family Medicine
DX: M79.10 Myalgia, unspecified site (principal); E87.6 Hypokalemia; R73.01 Impaired fasting glucose; I10 Essential (primary) hypertension
CPT/HCPCS: 36415; 82550; 83735; 84443; 85025; 86140

== ENCOUNTER 2021-04-10 08:02 | Outpatient (CLI) | payer BC ==
[2021-04-10 08:36] LABS: ALBUMIN 4.3 g/dL (3.2-5.5); ALBUMIN/GLOBULIN RATIO 1.1 (1.0-2.2); BILIRUBIN,TOTAL 0.8 mg/dL (0.2-1.0); CALCIUM 9.4 mg/dL (8.5-10.3); CREATININE 0.8 mg/dL (0.4-1.0); POTASSIUM 4.1 mmol/L (3.5-5.0); TOTAL PROTEIN 8.1 g/dL (6.7-8.2)
== END 2021-04-10 08:03 | disposition home or self-care (01) ==
LOC: LAB 08:02
PROVIDERS: ATTEND Family Medicine
DX: M79.10 Myalgia, unspecified site (principal); E87.6 Hypokalemia; R73.01 Impaired fasting glucose; I10 Essential (primary) hypertension
CPT/HCPCS: 36415; 80053

== ENCOUNTER 2021-08-14 07:55 | Outpatient (CLI) | payer BC ==
[2021-08-14 08:32] LABS: ALBUMIN 4.1 g/dL (3.2-5.5); ALBUMIN/GLOBULIN RATIO 1.1 (1.0-2.2); ALKALINE PHOSPHATASE 60 IU/L (42-121); ALT ALANINE AMINOTRANSFERASE 31 IU/L (10-60); AST ASPARTATE AMINOTRANSFERASE 28 IU/L (10-42); BILIRUBIN,TOTAL 0.6 mg/dL (0.2-1.0); BUN - BLOOD UREA NITROGEN 22 mg/dL (6-20); CALCIUM 9.4 mg/dL (8.5-10.3); CARBON DIOXIDE - CO2 24 mmol/L (21-32); CHLORIDE 103 mmol/L (101-111); CHOL/HDL RATIO 3.7 (<4.4); CHOLESTEROL 202 mg/dL; CREATININE 0.8 mg/dL (0.4-1.0); GFR - MDRD 74 (>89); GLUCOSE 117 mg/dL (70-100); HDL CHOLESTEROL 54 mg/dL; LDL CHOLESTEROL,CALCULATED 127 mg/dL; LDL/HDL RATIO 2.4 (<4.4); POTASSIUM 4.1 mmol/L (3.5-5.0); SODIUM 139 mmol/L (135-145); TOTAL PROTEIN 7.9 g/dL (6.7-8.2); TRIGLYCERIDES 104 mg/dL; VLDL CHOLESTEROL 21 mg/dL
[2021-08-14 08:43] LABS: THYROID STIMULATING HORMONE 1.14 uIU/mL (0.34-5.60)
[2021-08-14 12:20] LABS: ESTIMATED AVERAGE GLUCOSE 131 mg/dL (70-100); HEMOGLOBIN A1c% 6.2 % (4.27-6.07)
== END 2021-08-14 07:56 | disposition home or self-care (01) ==
LOC: LAB 07:55
PROVIDERS: ATTEND Family Medicine
DX: I10 Essential (primary) hypertension (principal); R73.01 Impaired fasting glucose; E78.5 Hyperlipidemia, unspecified; E66.01 Morbid (severe) obesity due to excess calories; E03.9 Hypothyroidism, unspecified; E87.6 Hypokalemia
CPT/HCPCS: 36415; 80053; 80061; 83036; 83721; 84443

== ENCOUNTER 2022-01-26 09:23 | Outpatient (CLI) | payer BC ==
--- NOTE | 2022-01-29 10:41 | Mammography Report ---
BILATERAL DIGITAL SCREENING MAMMOGRAM 3D/2D: 01/26/2022 CLINICAL: Routine screening. Comparison is made to exams dated: 04/23/2017 mammogram, 10/24/2015 mammogram, and 08/20/2012 mammogram - [facility]. There are scattered areas of fibroglandular density in both breasts (category b / 25%-50% glandular t issue). No significant masses, calcifications, or other findings are seen in either breast. There has been no significant interval change. IMPRESSION: NEGATIVE There is no mammographic evidence of malignancy. A 1 year screening mammogram is recommended. This exam was interpreted at Station ID: [id number]. NOTE: For mammograms, a report in lay terms will be sent to the patient. Approximately 15% of breast malignancies will not be visualized mammographically. In the management of a palpable breast mass, a negative mammogram must not discourage biopsy of a clinically suspicious lesion. Electronically Signed By: Octavio Rodriguez acr/penrad:01/26/2022 10:11:08 ACR BI-RADS Category 1: Negative 3341F PARENCHYMAL PATTERN: (A) - The breast(s) demonstrate(s) scattered fibroglandular densities. BI-RADS CATEGORY: (1) - 1 RECOMMENDATION: (ANNUAL) - Recommend routine annual screening mammography. [id number] 1 year screening LATERALITY: (B)
== END 2022-01-26 09:24 | disposition home or self-care (01) ==
LOC: DI 09:23
DX: Z12.31 Encounter for screening mammogram for malignant neoplasm of breast (principal)

== ENCOUNTER 2022-04-16 17:26 | Outpatient (CLI) | payer BC | END 2022-04-16 23:59 | disposition EMS.NT | LOC: EMS 17:26 | DX: Z04.1 Encounter for examination and observation following transport accident (principal) ==

== ENCOUNTER 2022-07-27 07:18 | Outpatient (CLI) | payer BC ==
[2022-07-27 07:51] LABS: ALBUMIN 3.9 g/dL (3.2-5.5); ALKALINE PHOSPHATASE 58 IU/L (42-121); ALT ALANINE AMINOTRANSFERASE 40 IU/L (10-60); AST ASPARTATE AMINOTRANSFERASE 33 IU/L (10-42); BILIRUBIN,TOTAL 0.7 mg/dL (0.2-1.0); BUN - BLOOD UREA NITROGEN 22 mg/dL (6-20); CALCIUM 9.7 mg/dL (8.5-10.3); CARBON DIOXIDE - CO2 26 mmol/L (21-32); CHLORIDE 105 mmol/L (101-111); CHOL/HDL RATIO 3.6 (<4.4); CHOLESTEROL 179 mg/dL; CREATININE 0.7 mg/dL (0.4-1.0); GFR - MDRD 86 (>89); GLUCOSE 125 mg/dL (70-100); HDL CHOLESTEROL 50 mg/dL; LDL CHOLESTEROL,CALCULATED 101 mg/dL; POTASSIUM 3.8 mmol/L (3.5-5.0); SODIUM 141 mmol/L (135-145); TOTAL PROTEIN 7.8 g/dL (6.7-8.2); TRIGLYCERIDES 142 mg/dL; VLDL CHOLESTEROL 28 mg/dL
[2022-07-27 08:01] LABS: THYROID STIMULATING HORMONE 0.27 uIU/mL (0.34-5.60)
[2022-07-27 08:57] LABS: FREE T4 (FREE THYROXINE) 1.07 ng/dL (0.58-1.64)
[2022-07-27 09:33] LABS: ESTIMATED AVERAGE GLUCOSE 134 mg/dL (70-100); HEMOGLOBIN A1c% 6.3 % (4.27-6.07)
== END 2022-07-27 07:19 | disposition home or self-care (01) ==
LOC: LAB 07:18
PROVIDERS: ATTEND Family Medicine
DX: I10 Essential (primary) hypertension (principal); R73.01 Impaired fasting glucose; E78.5 Hyperlipidemia, unspecified; E66.01 Morbid (severe) obesity due to excess calories; E03.9 Hypothyroidism, unspecified; E87.6 Hypokalemia
CPT/HCPCS: 36415; 80053; 80061; 83036; 83721; 84439; 84443

== ENCOUNTER 2022-08-22 11:22 | Outpatient (CLI) | payer BC ==
[2022-08-22 08:52] VITALS: BP 132/70
--- NOTE | 2022-08-22 08:52 | SLEEP CARE CONSULTATION ---
Information from patient questionnaire entered by Shira Baez. I have reviewed and concur with the information entered by Shira Baez. This document represents the service I personally performed and the decisions made by me, Jemima Clinton ARNP. History of Present Illness Service Date and Time: 08/22/2022 0840 Previous diagnosis: Moderate, Obstructive Sleep Apnea-Hypopnea Syndrome AHI: 15.8 (in 2009) Reason for follow up: first compliance after device update Equipment type: CPAP (Resmed Airsense 11, s/u 03/2022) Equipment obtained from: [employer] (getting supplies as needed) Mask style: Nasal pillows (extra small cushion) Backup mask available: Yes (old mask) Last cushion change: 1 month Prior sleep studies: Yes Year and Where: 2009 - [facility] Sleep HPI additional information: RAMYA LEVY was diagnosed to have moderate, AHI 15.8, obstructive sleep apnea-hypopnea syndrome and returns via video telehealth visit today for CPAP therapy first compliance with device update follow-up. Sleep Study - Results Prior sleep studies: Yes Year and Where: 2009 - [facility] Sleep CPAP Compliance Data - Data Reviewed with Patient Average duration of nightly device use: 8 hours 13 minutes Compliance rate %: 100 (30/30 days used) Current pressure setting (cmH2O): 7-9 Average residual AHI: 1.3 Central apnea: 0 Obstructive apnea: 0.2 Average large leak: 4.2 lpm Subjective Patient concerns: denies: aerophagia, mask discomfort, air blowing in eyes, mask leak noise, condensation in mask/hose, nasal congestion, dry mouth, nose, throat, epistaxis Observed to snore while using device: No Current pressure setting perceived as: comfortable On therapy, patient: reports: sleeping better, awakening more refreshed, being more awake and alert during the day, more rested overall. denies: drowsiness while driving Initial [place] Sleepiness Scale score: 7 (in 2009) Current [place] Sleepiness Scale score: 4 (08/22/22) Allergies and Home Medications Known drug allergies: No Drug allergies reviewed: Yes Home medication list reviewed: Yes (no changes) Allergy and home medication list: Allergies No Known Drug Allergies Allergy (Verified 08/21/22 13:28) Review of Systems Review of systems same as previous: Yes (no changes) Physical Exam Vital signs obtained and entered by: SHIRA Bauer MA Blood Pressure: 132/70 (PER PT) Height: 5 ft 8 in (PER PT) Weight: 295 lb (PER PT) Body Mass Index: 44.8 BMI Classification: Morbidly Obese Impression and Plan 1. Obstructive Sleep Apnea-Hypopnea Syndrome, moderate, with good treatment compliance and good apnea control. On CPAP therapy, the patient has better sleep quality and is more rested overall. Patient has significant improvement of their sleep apnea and is satisfied with current CPAP therapy. Patient denies problems with oral dryness, nasal congestion, epistaxis, skin irritation or aerophagia. I will follow-up with patient next year. Patient's apnea severity and rationale for treatment to reduce apnea, improve sleep quality and reduce cardiovascular and cerebrovascular events was reviewed. I also reviewed the benefit of consistent device use of CPAP for hypertension and depression. 2. Obesity, unspecified. Currently patients BMI is 44.8. Obesity increases the risk of apnea, CPAP pressure requirements and overall health risks especially cardiovascular and diabetes. Thus patient is advised to lose weight. * Continue auto CPAP pressure at 7-9 cmH2O * Notify me if snoring with mask or feeling that the pressure is too much or too little * Attempt to lose weight * Call this office if any problems using CPAP * Return for follow up in 1 year, or sooner if concerns arise Counseling Topics: Spare mask, Weight loss health impact Visit Type: Telehealth Video Video Type: Doximity Patient Location: Work Location of Provider: Office Patient agrees and consents to this telehealth visit type: Yes Patient agrees to have their insurance billed: Yes Time Spent with Patient (minutes): 13 Provider Statement: I spent 100% of the Telehealth Video Call with the patient with greater than 50% spent counseling the patient and coordination of care.
== END 2022-08-22 11:23 | disposition home or self-care (01) ==
LOC: SC 11:22
PROVIDERS: ATTEND Nurse Practitioner Family
DX: G47.33 Obstructive sleep apnea (adult) (pediatric) (principal); E66.01 Morbid (severe) obesity due to excess calories; Z68.41 Body mass index [BMI] 40.0-44.9, adult

== ENCOUNTER 2022-12-21 07:28 | Outpatient (CLI) | payer BC ==
[2022-12-21 08:08] LABS: ALBUMIN 4.3 g/dL (3.2-5.5); ALBUMIN/GLOBULIN RATIO 1.3 (1.0-2.2); ALKALINE PHOSPHATASE 71 IU/L (42-121); ALT ALANINE AMINOTRANSFERASE 30 IU/L (10-60); AST ASPARTATE AMINOTRANSFERASE 21 IU/L (10-42); BILIRUBIN,TOTAL 0.5 mg/dL (0.2-1.0); BUN - BLOOD UREA NITROGEN 15 mg/dL (6-20); CALCIUM 9.5 mg/dL (8.5-10.3); CARBON DIOXIDE - CO2 27 mmol/L (21-32); CHLORIDE 105 mmol/L (101-111); CHOL/HDL RATIO 3.8 (<4.4); CHOLESTEROL 180 mg/dL; CREATININE 0.7 mg/dL (0.6-1.3); GFR - MDRD 86 (>89); GLUCOSE 106 mg/dL (74-104); HDL CHOLESTEROL 47 mg/dL; LDL CHOLESTEROL,CALCULATED 102 mg/dL; LDL/HDL RATIO 2.2 (<4.4); POTASSIUM 4.2 mmol/L (3.5-4.5); SODIUM 135 mmol/L (135-145); TOTAL PROTEIN 7.7 g/dL (6.4-8.9); TRIGLYCERIDES 157 mg/dL (48-352); VLDL CHOLESTEROL 31 mg/dL
[2022-12-21 08:24] LABS: THYROID STIMULATING HORMONE 0.41 uIU/mL (0.34-5.60)
[2022-12-21 11:33] LABS: ESTIMATED AVERAGE GLUCOSE 128 mg/dL (70-100); HEMOGLOBIN A1c% 6.1 % (4.27-6.07)
== END 2022-12-21 07:29 | disposition home or self-care (01) ==
LOC: LAB 07:28
PROVIDERS: ATTEND Family Medicine
DX: I10 Essential (primary) hypertension (principal); R73.01 Impaired fasting glucose; E78.5 Hyperlipidemia, unspecified; E03.9 Hypothyroidism, unspecified; E66.01 Morbid (severe) obesity due to excess calories; E87.6 Hypokalemia
CPT/HCPCS: 36415; 80053; 80061; 83036; 83721; 84443

== ENCOUNTER 2023-01-31 08:40 | Day surgery (SDC) | payer BC ==
[~2023-01-31 08:40] MED LIST: CYCLOPENTOLATE 1% OPHTH DROPS 2 ML ONE; KETOROLAC 0.45% OPHTH DROPS ONE; PHENYLEPHRINE 2.5% OPHTH 2 ML DROPS ONE; PROPARACAINE 0.5% OPHTH DROPS 15 ML ONE
[2023-01-31] MEDS ORDERED: LACTATED RINGERS 1,000 ML IV ONE ×2 (09:04→10:45)
--- NOTE | 2023-01-31 09:58 | ANESTHESIA ---
Pre-Anesthesia VS, & Labs - Diagnosis R cataract - Procedure R PhacoIOL Vital Signs: Temp Pulse Resp BP Pulse Ox O2 Flow Rate 36.6 C 72 14 119/69 95 01/31/23 09:05 01/31/23 09:05 01/31/23 09:05 01/31/23 09:05 01/31/23 09:05 Height: 5 ft 8 in Weight (kg): 135 kg Body Mass Index: 45.2 BMI Classification: Morbidly Obese - NPO >8 hours - Is Patient ?: No Home Medications and Allergies Home Medications: Ambulatory Orders Aspirin [[place] Aspirin] 81 mg PO DAILY 01/31/23 Cholecalciferol (Vitamin D3) [Vitamin D3] 1,000 unit PO DAILY 01/31/23 Levothyroxine [Synthroid] 175 mcg PO QDAC 01/31/23 Losartan [Cozaar] 50 mg PO DAILY 01/31/23 Multivitamin 1 tab PO DAILY 01/31/23 Niacin (Inositol Niacinate) [Niacin 500 mg Capsule] 500 mg PO DAILY 01/31/23 Basin-3S/Dha/Epa/Fish Oil [Fish Oil 1,200 mg Softgel] 1,200 mg PO BID 01/31/23 Potassium Chloride 10 meq PO DAILY 01/31/23 Ubidecarenone [Co Q-10] 200 mg PO DAILY PM 01/31/23 flaxseed oiL [Flaxseed Oil] 1,200 mg PO BID 01/31/23 Metoprolol Succinate [Toprol Xl] 25 mg PO DAILY 05/16/20 Simvastatin [Zocor] 40 mg ORAL DAILY 05/16/20 Venlafaxine ER [Effexor ER] 150 mg PO DAILY 05/16/20 Aspirin [[place] Aspirin] 81 mg PO DAILY 01/31/23 Cholecalciferol (Vitamin D3) [Vitamin D3] 1,000 unit PO DAILY 01/31/23 Levothyroxine [Synthroid] 175 mcg PO QDAC 01/31/23 Losartan [Cozaar] 50 mg PO DAILY 01/31/23 Multivitamin 1 tab PO DAILY 01/31/23 Niacin (Inositol Niacinate) [Niacin 500 mg Capsule] 500 mg PO DAILY 01/31/23 Basin-3S/Dha/Epa/Fish Oil [Fish Oil 1,200 mg Softgel] 1,200 mg PO BID 01/31/23 Potassium Chloride 10 meq PO DAILY 01/31/23 Ubidecarenone [Co Q-10] 200 mg PO DAILY PM 01/31/23 flaxseed oiL [Flaxseed Oil] 1,200 mg PO BID 01/31/23 Allergies/Adverse Reactions: Allergies Allergy/AdvReac Type Severity Reaction Status Date / Time No Known Drug Allergies Allergy Verified 08/22/22 08:33 Anes History & Medical History - Anesthetic History Anesthesia Complications: reports: No previous complications Family history of Anesthesia Complications: Denies Family history of Malignant Hyperthermia: Denies - Medical History Cardiovascular: reports: Hypertension, High cholesterol, Murmur Pulmonary: reports: None Gastrointestinal: reports: None Urinary: reports: None Neuro: reports: None Musculoskeletal: reports: None Endocrine/Autoimmune: reports: HyPOthyroidism, Other Blood Disorders: reports: None Skin: reports: None Smoking Status: Never smoker - Surgical History General: reports: Other Gynecologic: reports: section Exam General: Alert, Oriented x3, Cooperative Dental: WNL Mouth Openin Fingerbreadth Neck Mobility: Normal Mallampati classification: II Thyromental Distance: 4-6 cm Respiratory: Lungs clear Cardiovascular: Regular rate Plan Anesthesia Type: MAC Consent for Procedure(s) Verified and Reviewed: Yes Code Status: Attempt Resuscitation ASA classification: 3-Severe systemic disease Is this case an emergency?: No
[2023-01-31] MEDS ORDERED: EPINEPHrine 1 MG/ML AMP ONE (10:17)
[2023-01-31] MEDS ORDERED: TRIAMCIN/MOXIFLOX OPHTHALMIC 0.6 ML VIAL IO ONE ×2 (10:17→10:34)
[2023-01-31] MEDS ORDERED: TIMOLOL 0.5% OPHTH DROPS ONE (10:18)
[2023-01-31] MEDS ORDERED: BSS/LIDOCAINE/EPINEPHRINE 1 ML VIAL ONE (10:18)
[2023-01-31] MEDS ORDERED: BRIMONIDINE 0.2% OPHTH DROPS 5 ML ONE (10:18)
[2023-01-31] MEDS ORDERED: MIDAZOLAM 2 MG/2 ML VIAL ONE (10:21)
[2023-01-31] MEDS ORDERED: BRIMONIDINE 0.2% OPHTH DROPS 5 ML OPTH ONE (10:33)
[2023-01-31] MEDS ORDERED: TIMOLOL 0.5% OPHTH DROPS OPTH ONE (10:33)
[2023-01-31] MEDS ORDERED: EPINEPHrine 1 MG/ML AMP IR ONE (10:33)
[2023-01-31] MEDS ORDERED: PROPARACAINE 0.5% OPHTH DROPS 15 ML EACHEYE ONE (10:34)
[2023-01-31] MEDS ORDERED: BSS/LIDOCAINE/EPINEPHRINE 1 ML SYRINGE IO ONE (10:34)
[2023-01-31] MEDS ORDERED: VANCOMYCIN OPHTH (TOPICAL) 10 MG/ML SYRINGE TOP ONE (10:34)
--- NOTE | 2023-01-31 10:45 | OPERATIVE REPORT ---
Operative Report - Other Other Information/Narrative: Date of Surgery: 01/31/23 Preop Dx: Visually significant cataract right eye. This was the first cataract surgery. Postop Dx: Same Procedure: Phacoemulsification with posterior chamber intraocular lens implant right eye Surgeon: Dr. Abraham Linton Anesthesia: Monitored anesthesia care Complications: None Operative Indications: This is a 57-year-old F with progressive vision loss in the right eye due 2+ posterior subcapsular cataract. Best corrected visual acuity was 20/25 with glare to light perception vision in the right eye. Indications for surgery were: - Difficulty seeing words on a computer screen - Difficulty reading - Difficulty driving in low light or at night - Difficulty driving at night because of headlights from other vehicles - Difficulty with glare or bright lights in any situation The patient was consented at length concerning the risks and benefits of cataract surgery after which the patient expressed a desire to proceed with surgery. Operative Procedure: The patient was taken into OR#3 and placed under monitored anesthesia care. A surgical time-out was conducted confirming correct patient, correct procedure, and correct surgical site. The patient was given topical anesthesia and then prepped and draped in the usual sterile fashion. The eye was entered at the 6 and 3 oclock positions. Intracameral Shugarcaine was injected into the anterior chamber followed by a dispersive viscoelastic. A continuous-tear curvilinear capsulorhexis was performed. The nucleus was hydrodissected and phacoemulsified. The cortex was evacuated using automated infusion and aspiration. A cohesive viscoelastic was injected into the capsular bag and a 23.5 diopter intraocular lens was inserted into the bag. Infusion and aspiration were used to evacuate the viscoelastic materials from the eye. The wounds were hydrated and the eye inflated to physiologic pressure using balanced salt solution. Approximately 0.25ml of a mixture of triamcinolone and moxifloxacin was injected trans-sclerally into the vitreous in the inferotemporal quadrant using a 30 gauge cannula. An additional 0.25ml of a mixture of triamcinolone and moxifloxacin was injected subconjunctivally in the superior quadrant for infection and inflammation prophylaxis. Wound integrity was checked with Weck-Ana sponges. The patient was taken from the operating room in good condition and given post-op instructions.
[2023-01-31 11:31] VITALS: BP 118/67; O2SAT 96
--- NOTE | 2023-01-31 14:29 | ANESTHESIA POST OP EVALUATION ---
Anesthesia Post Eval - Post Anesthesia Eval Vitals: Last Vital Signs Temp 36.8 C 01/31/23 11:23 Pulse 73 01/31/23 11:23 Resp 16 01/31/23 11:23 BP 118/67 01/31/23 11:23 Pulse Ox 96 01/31/23 11:23 O2 Flow Rate CV Function Including HR & BP: Stable Pain Control: Satisfactory Nausea & Vomiting: Negative Mental Status: Baseline Respiratory Status: Airway Patent Hydration Status: Satisfactory Anesthesia Complications: None
== END 2023-01-31 08:41 | disposition home or self-care (01) ==
LOC: SDS 08:40
PROVIDERS: ATTEND Ophthalmology
DX: H25.041 Posterior subcapsular polar age-related cataract, right eye (principal); I10 Essential (primary) hypertension; E66.01 Morbid (severe) obesity due to excess calories; Z68.42 Body mass index [BMI] 45.0-49.9, adult
CPT/HCPCS: 66984; A9270; J3490; J7120

== ENCOUNTER 2023-03-07 07:12 | Day surgery (SDC) | payer BC ==
--- NOTE | 2023-03-07 07:10 | ANESTHESIA ---
Pre-Anesthesia VS, & Labs - Diagnosis L posterior subcapsular cataract - Procedure extraction L cataract wIOL Height: 5 ft 8 in - NPO >8 hours - Is Patient ?: No - Lab Results Lab results reviewed: Yes Home Medications and Allergies Metoprolol Succinate [Toprol Xl] 25 mg PO DAILY 05/16/20 Simvastatin [Zocor] 40 mg ORAL DAILY 05/16/20 Venlafaxine ER [Effexor ER] 150 mg PO DAILY 05/16/20 Aspirin [[place] Aspirin] 81 mg PO DAILY 01/31/23 Cholecalciferol (Vitamin D3) [Vitamin D3] 1,000 unit PO DAILY 01/31/23 Levothyroxine [Synthroid] 175 mcg PO QDAC 01/31/23 Losartan [Cozaar] 50 mg PO DAILY 01/31/23 Multivitamin 1 tab PO DAILY 01/31/23 Niacin (Inositol Niacinate) [Niacin 500 mg Capsule] 500 mg PO DAILY 01/31/23 [place]-3S/Dha/Epa/Fish Oil [Fish Oil 1,200 mg Softgel] 1,200 mg PO BID 01/31/23 Potassium Chloride 10 meq PO DAILY 01/31/23 Ubidecarenone [Co Q-10] 200 mg PO DAILY PM 01/31/23 flaxseed oiL [Flaxseed Oil] 1,200 mg PO BID 01/31/23 Allergies/Adverse Reactions: Allergies Allergy/AdvReac Type Severity Reaction Status Date / Time amoxicillin AdvReac Cramps Verified 03/06/23 12:33 Anes History & Medical History - Anesthetic History Anesthesia Complications: reports: No previous complications Family history of Anesthesia Complications: Denies Family history of Malignant Hyperthermia: Denies - Medical History Cardiovascular: reports: Hypertension, High cholesterol, Murmur Pulmonary: reports: Sleep apnea, CPAP use Gastrointestinal: reports: Colon polyps Urinary: reports: None Neuro: reports: None Musculoskeletal: reports: None Endocrine/Autoimmune: reports: None Blood Disorders: reports: None Skin: reports: None Smoking Status: Never smoker History of Cancer?: No - Surgical History General: reports: Colonoscopy, Other Eyes Ears Nose Throat (EENT): reports: Cataracts Gynecologic: reports: section Exam General: Alert, Oriented x3, Cooperative Dental: WNL Mouth Openin Fingerbreadth Neck Mobility: Normal Mallampati classification: II Respiratory: Lungs clear Cardiovascular: Regular rate Neurological: Normal speech Mental/Cognitive Status: Alert/Oriented X3, Normal for patient Cognitive Status: Within normal limits Plan Anesthesia Type: MAC Consent for Procedure(s) Verified and Reviewed: Yes Code Status: Attempt Resuscitation ASA classification: 3-Severe systemic disease Is this case an emergency?: No
[2023-03-07] MEDS ORDERED: LACTATED RINGERS 1,000 ML IV ONE (07:32)
[2023-03-07] MEDS ORDERED: MIDAZOLAM 2 MG/2 ML VIAL ONE (08:13)
[2023-03-07] MEDS ORDERED: TRIAMCIN/MOXIFLOX OPHTHALMIC 0.6 ML VIAL IO ONE ×2 (08:23→08:40)
[2023-03-07] MEDS ORDERED: BRIMONIDINE 0.2% OPHTH DROPS 5 ML ONE (08:24)
[2023-03-07] MEDS ORDERED: EPINEPHrine 1 MG/ML AMP ONE (08:24)
[2023-03-07] MEDS ORDERED: BSS/LIDOCAINE/EPINEPHRINE 1 ML VIAL ONE (08:24)
[2023-03-07] MEDS ORDERED: TIMOLOL 0.5% OPHTH DROPS ONE (08:24)
[2023-03-07] MEDS ORDERED: BRIMONIDINE 0.2% OPHTH DROPS 5 ML OPTH ONE (08:39)
[2023-03-07] MEDS ORDERED: EPINEPHrine 1 MG/ML AMP IR ONE (08:39)
[2023-03-07] MEDS ORDERED: TIMOLOL 0.5% OPHTH DROPS OPTH ONE (08:40)
[2023-03-07] MEDS ORDERED: BSS/LIDOCAINE/EPINEPHRINE 1 ML SYRINGE IO ONE (08:40)
[2023-03-07] MEDS ORDERED: PROPARACAINE 0.5% OPHTH DROPS 15 ML LEFTEYE ONE (08:40)
[2023-03-07] MEDS ORDERED: VANCOMYCIN OPHTH (TOPICAL) 10 MG/ML SYRINGE TOP ONE (08:40)
[2023-03-07] MEDS ORDERED: LACTATED RINGERS 700 ML IV ONE (08:51)
--- NOTE | 2023-03-07 09:00 | ANESTHESIA POST OP EVALUATION ---
Anesthesia Post Eval - Post Anesthesia Eval Vitals: Last Vital Signs Temp 36.2 C L 03/07/23 07:37 Pulse 72 03/07/23 07:37 Resp 16 03/07/23 07:37 BP 143/73 H 03/07/23 07:37 Pulse Ox 94 03/07/23 07:37 O2 Flow Rate CV Function Including HR & BP: Stable Pain Control: Satisfactory Nausea & Vomiting: Negative Mental Status: Baseline Respiratory Status: Airway Patent Hydration Status: Satisfactory Anesthesia Complications: None
--- NOTE | 2023-03-07 09:01 | OPERATIVE REPORT ---
Operative Report - Other Other Information/Narrative: Date of Surgery: 03/07/23 Preop Dx: Visually significant cataract left eye. Cataract surgery was performed in the right eye on [id number]. Postop Dx: Same Procedure: Phacoemulsification with posterior chamber intraocular lens implant left eye Surgeon: Dr. Abraham Linton Anesthesia: Monitored anesthesia care Complications: None Operative Indications: This is a 57-year-old F with progressive vision loss in the left eye due to 2+ posterior subcapsular cataract. Best corrected visual acuity was 20/30 with glare to light perception vision in the left eye. Indications for surgery were: - Overall decrease in vision - Difficulty seeing words on a computer screen - Difficulty reading - Difficulty seeing words, closed captions, or game scores on TV - Difficulty seeing street signs - Difficulty driving in low light or at night - Difficulty driving at night because of headlights from other vehicles - Difficulty with glare or bright lights in any situation The patient was consented at length concerning the risks and benefits of cataract surgery after which the patient expressed a desire to proceed with surgery. Operative Procedure: The patient was taken into OR#3 and placed under monitored anesthesia care. A surgical time-out was conducted confirming correct patient, correct procedure, and correct surgical site. The patient was given topical anesthesia and then prepped and draped in the usual sterile fashion. The eye was entered at the 6 and 3 oclock positions. Intracameral Shugarcaine was injected into the anterior chamber followed by a dispersive viscoelastic. A continuous-tear curvilinear capsulorhexis was started but started to run out into the zonules nasally so the rhexis was restarted inferotemporally and a can- agent contract clerk technique used to complete the last quadrant of rhexis inferiorly. The nucleus was hydrodissected and phacoemulsified. The cortex was evacuated using automated infusion and aspiration. A cohesive viscoelastic was injected into the capsular bag and a 23.0 diopter intraocular lens was inserted into the bag. Infusion and aspiration were used to evacuate the viscoelastic materials from the eye. The IOL was well-centered in the bag with the haptics at the 12 and 6- oclock positions. The wounds were hydrated and the eye inflated to physiologic pressure using balanced salt solution. Approximately 0.25ml of a mixture of triamcinolone and moxifloxacin was injected trans-sclerally into the vitreous in the inferotemporal quadrant using a 30 gauge cannula. An additional 0.25ml of a mixture of triamcinolone and moxifloxacin was injected subconjunctivally in the superior quadrant for infection and inflammation prophylaxis. Wound integrity was checked with Weck-Ana sponges. The patient was taken from the operating room in good condition and given post-op instructions.
[2023-03-07 09:20] VITALS: BP 131/61; O2SAT 98
== END 2023-03-07 07:13 | disposition home or self-care (01) ==
LOC: SDS 07:12
PROVIDERS: ATTEND Ophthalmology
DX: H25.042 Posterior subcapsular polar age-related cataract, left eye (principal); G47.30 Sleep apnea, unspecified; Z98.41 Cataract extraction status, right eye
CPT/HCPCS: 66984; A9270; J3490; J7120

== ENCOUNTER 2023-05-23 12:15 | Outpatient (CLI) | payer BC ==
[2023-05-23 12:26] LABS: BASOPHILS # (AUTO) 0.1 10^3/uL (0.0-0.1); BASOPHILS % (AUTO) 1.1 %; EOSINOPHILS # (AUTO) 0.2 10^3/uL (0.0-0.7); EOSINOPHILS % (AUTO) 4.2 %; HCT - HEMATOCRIT 42.2 % (37.0-47.0); HGB - HEMOGLOBIN 13.9 g/dL (12.0-16.0); LYMPHOCYTES # (AUTO) 1.6 10^3/uL (1.5-3.5); MEAN CORPUSCULAR HEMOGLOBIN 29.6 pg (27.0-31.0); MEAN CORPUSCULAR HGB CONC 32.9 g/dL (32.0-36.0); MEAN CORPUSCULAR VOLUME 89.8 fL (81.0-99.0); MEAN PLATELET VOLUME 12.7 fL (7.9-10.8); MONOCYTES # (AUTO) 0.8 10^3/uL (0.0-1.0); MONOCYTES % (AUTO) 15.2 %; NEUTROPHILS # (AUTO) 2.5 10^3/uL (1.5-6.6); NEUTROPHILS % (AUTO) 48.1 %; PLT - PLATELET COUNT 188 10^3/uL (130-450); WHITE BLOOD COUNT 5.3 x10^3/uL (4.8-10.8)
[2023-05-23 12:57] LABS: ALBUMIN 4.5 g/dL (3.2-5.5); ALBUMIN/GLOBULIN RATIO 1.3 (1.0-2.2); BILIRUBIN,TOTAL 0.6 mg/dL (0.2-1.0); CREATININE 0.8 mg/dL (0.6-1.3)
== END 2023-05-23 12:16 | disposition home or self-care (01) ==
LOC: LAB 12:15
PROVIDERS: ATTEND Obstetrics & Gynecology
DX: Z01.812 Encounter for preprocedural laboratory examination (principal); N95.0 Postmenopausal bleeding; R93.89 Abnormal findings on diagnostic imaging of other specified body structures
CPT/HCPCS: 36415; 80053; 85025

== ENCOUNTER 2023-05-28 10:48 | Day surgery (SDC) | payer BC ==
[2023-05-28] MEDS ORDERED: LACTATED RINGERS 1,000 ML IV ONE (11:12)
[2023-05-28] MEDS ORDERED: SILVER NITRATE APPLICATOR TOP ONE (11:50)
--- NOTE | 2023-05-28 12:08 | ANESTHESIA ---
Pre-Anesthesia VS, & Labs - Diagnosis MENOPAUSAL BLEEDING - Procedure HYSTEROSCOPY, POSS POLYPECTOMY Vital Signs: Temp Pulse Resp BP Pulse Ox O2 Flow Rate 36.3 C L 65 18 141/75 H 95 05/28/23 11:13 05/28/23 11:13 05/28/23 11:13 05/28/23 11:13 05/28/23 11:13 Height: 5 ft 8 in Weight (kg): 140.6 kg Body Mass Index: 47.1 BMI Classification: Morbidly Obese - NPO Last Fluid Intake: 844 - Is Patient ?: No Home Medications and Allergies Metoprolol Succinate [Toprol Xl] 25 mg PO DAILY 05/16/20 Simvastatin [Zocor] 40 mg ORAL DAILY 05/16/20 Venlafaxine ER [Effexor ER] 150 mg PO DAILY 05/16/20 Aspirin [[place] Aspirin] 81 mg PO DAILY 01/31/23 Cholecalciferol (Vitamin D3) [Vitamin D3] 1,000 unit PO DAILY 01/31/23 Levothyroxine [Synthroid] 175 mcg PO QDAC 01/31/23 Losartan [Cozaar] 50 mg PO DAILY 01/31/23 Multivitamin 1 tab PO DAILY 01/31/23 Niacin (Inositol Niacinate) [Niacin 500 mg Capsule] 500 mg PO DAILY 01/31/23 [place]-3S/Dha/Epa/Fish Oil [Fish Oil 1,200 mg Softgel] 1,200 mg PO BID 01/31/23 Potassium Chloride 10 meq PO DAILY 01/31/23 Ubidecarenone [Co Q-10] 200 mg PO DAILY PM 01/31/23 flaxseed oiL [Flaxseed Oil] 1,200 mg PO BID 01/31/23 Allergies/Adverse Reactions: Allergies Allergy/AdvReac Type Severity Reaction Status Date / Time amoxicillin AdvReac Cramps Verified 03/06/23 12:33 Anes History & Medical History - Anesthetic History Anesthesia Complications: reports: No previous complications Family history of Anesthesia Complications: Denies Family history of Malignant Hyperthermia: Denies - Medical History Cardiovascular: reports: Hypertension, High cholesterol, Murmur (AORTIC STENOSIS, AV GRADIENT 23, EF 60-65%, 04/10 ECHO) Pulmonary: reports: Sleep apnea, CPAP use Gastrointestinal: reports: Colon polyps Urinary: reports: None Neuro: reports: None Musculoskeletal: reports: None Endocrine/Autoimmune: reports: None Blood Disorders: reports: None Skin: reports: None Smoking Status: Never smoker - Surgical History General: reports: Colonoscopy, Other Eyes Ears Nose Throat (EENT): reports: Cataracts Gynecologic: reports: section Exam General: Alert Dental: WNL Mouth Openin Fingerbreadth Neck Mobility: Reduced Mallampati classification: III Thyromental Distance: 4-6 cm Plan Anesthesia Type: General Consent for Procedure(s) Verified and Reviewed: Yes Code Status: Attempt Resuscitation ASA classification: 3-Severe systemic disease Is this case an emergency?: No
[2023-05-28] MEDS ORDERED: ATROPINE ABBOJECT 1 MG/10 ML SYRINGE IVP PRN (12:12)
[2023-05-28] MEDS ORDERED: fentaNYL 100 MCG/2 ML VIAL IVP PRN (12:12)
[2023-05-28] MEDS ORDERED: ePHEDrine 50 MG/ML VIAL IVP PRN (12:12)
[2023-05-28] MEDS ORDERED: MORPHINE 2 MG/ML CARPUJECT IVP PRN (12:12)
[2023-05-28] MEDS ORDERED: ONDANSETRON 4 MG/2 ML VIAL IVP PRN (12:12)
[2023-05-28] MEDS ORDERED: NALOXONE 0.4 MG/ML VIAL IVP PRN (12:12)
[2023-05-28] MEDS ORDERED: METOCLOPRAMIDE 10 MG/2 ML VIAL IVP PRN (12:12)
[2023-05-28] MEDS ORDERED: HYDROmorphone 0.5 MG/0.5 ML SYRINGE IVP PRN (12:12)
[2023-05-28] MEDS ORDERED: PROPOFOL 200 MG/20 ML VIAL IVP ONE (12:20)
[2023-05-28] MEDS ORDERED: SUCCINYLCHOLINE 200 MG/10 ML VIAL ONE (12:20)
[2023-05-28] MEDS ORDERED: fentaNYL 100 MCG/2 ML VIAL ONE (12:20)
[2023-05-28] MEDS ORDERED: ONDANSETRON 4 MG/2 ML VIAL ONE (12:46)
[2023-05-28] MEDS ORDERED: DEXAMETHASONE 4 MG/ML VIAL ONE (12:46)
[2023-05-28] MEDS ORDERED: LACTATED RINGERS 1,000 ML IV SCH (13:00)
[2023-05-28] MEDS ORDERED: ePHEDrine 50 MG/ML VIAL IVP ONE (13:08)
[2023-05-28] MEDS ORDERED: LACTATED RINGERS 200 ML IV ONE ×2 (14:00)
--- NOTE | 2023-05-28 14:10 | OPERATIVE REPORT ---
Operative Report - General Procedure Date: 05/28/23 - Other Other Information/Narrative: OPERATIVE NOTE Pre-operative diagnosis: 1. Post menopausal bleeding 2. Thickened endometrium Procedure: Diagnostic hysteroscopy, dilation and curettage, polypectomy Post-operative diagnosis: SHALA Surgeon: Avinash Food Counter Attendant: None Anesthesia: Gen ET tube Findings: EUA: small uterus, no adnexal masses, normal cervix Speculum: normal vagina, normal cervix Hysteroscope: normal ostea B/L, normal fundus polyp on posterior uterine wall, fundus, and endocervical removed and confirmed removal with visualization 360' endometrial cry Specimen: endometrial curettage & polyps Complications: None apparent EBL: minimal Hysteroscopic fluid in and out equivocal. UOP: none, pt voided prior to case IVF: 900cc Dispo: Pt to PACU in stable condition Procedure in detail: After risks benefits and alternatives, as well as indication for procedure and anticipated post-operative recovery course, were discussed with the patient informed consent was obtained and patient was taken to the operating theater where general anesthesia with LMA was administered without complication. Pt placed in dorsal lithotomy position, SCDs in place and running, and bimanual exam revealed the aforementioned findings. Flores speculum placed in posterior vagina, and anterior lip of cervix grasped with ring forces. Cervix dilated to accomodate 5.5mm hysteroscope. hysteroscope then entered without difficulty. Difficulty with focussing hysteroscope, and after several attempts we switched hysteroscopic devices to use the myosure hysteroscope, and then myosure for polyp removal. aforementioned findings noted. hysteroscope removed. Curettage done 360' uterine cry. All instruments removed, specimen sent to pathology x2 -- polyps from myosure and curretings as endometrial curretings.. All counts correct. Pt awaked from anesthesia. Pt to PACU in stable condition. Events of procedure discussed with patient, and photos shown. All questions answered.
[2023-05-28] MEDS ORDERED: ALBUTEROL 8 GM INHALER INH ONE (15:08)
[2023-05-28 15:58] VITALS: BP 120/72; O2SAT 99
--- NOTE | 2023-05-28 16:18 | ANESTHESIA POST OP EVALUATION ---
Anesthesia Post Eval - Post Anesthesia Eval Vitals: Last Vital Signs Temp 36.3 C L 05/28/23 14:24 Pulse 65 05/28/23 15:15 Resp 16 05/28/23 15:15 BP 120/72 05/28/23 15:15 Pulse Ox 99 05/28/23 15:15 O2 Flow Rate CV Function Including HR & BP: Stable Pain Control: Satisfactory Nausea & Vomiting: Negative Mental Status: Baseline Respiratory Status: Airway Patent Hydration Status: Satisfactory Anesthesia Complications: None
== END 2023-05-28 10:49 | disposition home or self-care (01) ==
LOC: SDS 10:48
PROVIDERS: ATTEND Obstetrics & Gynecology
PROC: 0UB98ZZ Excision of Uterus, Via Natural or Artificial Opening Endoscopic (ICD-10-PCS; principal; 2023-05-28 12:15)
DX: N95.0 Postmenopausal bleeding (principal); R93.89 Abnormal findings on diagnostic imaging of other specified body structures; N84.0 Polyp of corpus uteri; I10 Essential (primary) hypertension; E66.01 Morbid (severe) obesity due to excess calories; Z68.42 Body mass index [BMI] 45.0-49.9, adult; G47.30 Sleep apnea, unspecified; R01.0 Benign and innocent cardiac murmurs
CPT/HCPCS: 58558; A9270; J0330; J7120

== ENCOUNTER 2023-07-10 07:19 | Outpatient (CLI) | payer BC ==
[2023-07-10 07:55] LABS: ALBUMIN 4.2 g/dL (3.2-5.5); ALBUMIN/GLOBULIN RATIO 1.3 (1.0-2.2); ALKALINE PHOSPHATASE 65 IU/L (42-121); ALT ALANINE AMINOTRANSFERASE 29 IU/L (10-60); AST ASPARTATE AMINOTRANSFERASE 21 IU/L (10-42); BILIRUBIN,TOTAL 0.6 mg/dL (0.2-1.0); BUN - BLOOD UREA NITROGEN 19 mg/dL (6-20); CALCIUM 9.4 mg/dL (8.5-10.3); CARBON DIOXIDE - CO2 25 mmol/L (21-32); CHLORIDE 105 mmol/L (101-111); CHOL/HDL RATIO 4.3 (<4.4); CHOLESTEROL 211 mg/dL; CREATININE 0.7 mg/dL (0.6-1.3); GFR - MDRD 86 (>89); GLUCOSE 117 mg/dL (74-104); HDL CHOLESTEROL 49 mg/dL; LDL CHOLESTEROL,CALCULATED 117 mg/dL; LDL/HDL RATIO 2.4 (<4.4); POTASSIUM 4.2 mmol/L (3.5-4.5); SODIUM 137 mmol/L (135-145); TOTAL PROTEIN 7.5 g/dL (6.4-8.9); TRIGLYCERIDES 225 mg/dL (48-352); VLDL CHOLESTEROL 45 mg/dL
[2023-07-10 08:10] LABS: THYROID STIMULATING HORMONE 1.01 uIU/mL (0.34-5.60)
[2023-07-10 08:13] LABS: BASOPHILS # (AUTO) 0.1 10^3/uL (0.0-0.1); BASOPHILS % (AUTO) 1.1 %; EOSINOPHILS # (AUTO) 0.2 10^3/uL (0.0-0.7); EOSINOPHILS % (AUTO) 4.2 %; LYMPHOCYTES # (AUTO) 1.4 10^3/uL (1.5-3.5); LYMPHOCYTES % (AUTO) 24.5 %; MEAN CORPUSCULAR HEMOGLOBIN 29.8 pg (27.0-31.0); MEAN CORPUSCULAR HGB CONC 32.5 g/dL (32.0-36.0); MEAN CORPUSCULAR VOLUME 91.7 fL (81.0-99.0); MEAN PLATELET VOLUME 13.7 fL (7.9-10.8); MONOCYTES # (AUTO) 0.5 10^3/uL (0.0-1.0); MONOCYTES % (AUTO) 8.5 %; NEUTROPHILS # (AUTO) 3.4 10^3/uL (1.5-6.6); NEUTROPHILS % (AUTO) 61.3 %; PLT - PLATELET COUNT 181 10^3/uL (130-450); RED BLOOD COUNT 4.36 10^6/uL (4.20-5.40); WHITE BLOOD COUNT 5.5 x10^3/uL (4.8-10.8)
[2023-07-10 14:42] LABS: ESTIMATED AVERAGE GLUCOSE 134 mg/dL (70-100); HEMOGLOBIN A1c% 6.3 % (4.27-6.07)
== END 2023-07-10 07:20 | disposition home or self-care (01) ==
LOC: LAB 07:19
PROVIDERS: ATTEND Family Medicine
DX: I11.9 Hypertensive heart disease without heart failure (principal); R73.01 Impaired fasting glucose; E87.6 Hypokalemia; E03.9 Hypothyroidism, unspecified; E78.00 Pure hypercholesterolemia, unspecified
CPT/HCPCS: 36415; 80053; 80061; 83036; 83721; 84443; 85025

== ENCOUNTER 2023-07-20 15:04 | Outpatient (CLI) | payer BC ==
--- NOTE | 2023-07-20 22:04 | Ultrasound Report ---
PROCEDURE: Carotid Doppler Complete INDICATIONS: BRUIT OF LEFT CAROTID ARTERY TECHNIQUE: Color and pulse Doppler interrogation was performed of both carotid systems, with image documentation and velocity measurements. COMPARISON: None. FINDINGS: Right side: Brachial blood pressure: 142/69 mm Hg. Common carotid artery peak systolic velocity: 63 cm/sec. Internal carotid artery peak systolic velocity: 71 cm/sec. Internal carotid artery end diastolic velocity: 23 cm/sec. External carotid artery peak systolic velocity: 85 cm/sec. ICA/CCA peak systolic ratio: 1.1 . Cardoso scale imaging description: No significant atherosclerotic plaque. Percent internal carotid artery stenosis: No hemodynamically significant stenosis. Vertebral artery: Flow direction is antegrade. Left side: Brachial blood pressure: 144/74 mm Hg. Common carotid artery peak systolic velocity: 70 cm/sec. Internal carotid artery peak systolic velocity: 66 cm/sec. Internal carotid artery end diastolic velocity: 30 cm/sec. External carotid artery peak systolic velocity: 81 cm/sec. ICA/CCA peak systolic ratio: 0.9 . Cardoso scale imaging description: No significant atherosclerotic plaque. Percent internal carotid artery stenosis: No hemodynamically significant stenosis. Vertebral artery: Flow direction is antegrade. IMPRESSION: 1. In the right internal carotid artery, there is no hemodynamically significant stenosis based on pe ak systolic velocity criteria. 2. In the left internal carotid artery, there is no hemodynamically significant stenosis based on pea k systolic velocity criteria. 3. Antegrade blood flow within the right vertebral artery. 4. Antegrade blood flow within the left vertebral artery. The estimate of stenosis included in the report of the imaging study was calculated using the [facility]-end orsed standards of carotid artery stenosis. Reviewed by: Sheldon Yancey MD on 07/20/2023 10:03 PM PST Approved by: Sheldon Yancey MD on 07/20/2023 10:03 PM PST Station ID: [id number]
== END 2023-07-20 15:05 | disposition home or self-care (01) ==
LOC: DI 15:04
PROVIDERS: ATTEND Family Medicine
DX: R09.89 Other specified symptoms and signs involving the circulatory and respiratory systems (principal); N95.0 Postmenopausal bleeding
CPT/HCPCS: 93880

== ENCOUNTER 2023-07-20 15:08 | Outpatient (CLI) | payer BC ==
--- NOTE | 2023-07-20 22:02 | Ultrasound Report ---
PROCEDURE: Pelvic w/Transvaginal INDICATIONS: POST MENOPAUSAL BLEEDING TECHNIQUE: Real-time scanning was performed of the pelvic organs, with image documentation. Additional endovagi nal scanning was necessary due to incomplete visualization of the adnexal and endometrial structures by transabdominal scanning. COMPARISON: None. FINDINGS: Uterus: Uterus is anteverted and normal in size at 10.8 x 4.6 x 4.8 cm. The myometrium is homogeneo us. The endometrium measures 6 mm in combined thickness. Ovaries: The right ovary was not visualized on this exam. The left ovary measures 1.9 x 1.7 x 1.7 cm , with a calculated ovarian volume of 2.8 cc. The left ovary has a normal sonographic appearance. L ess than 12 follicles can be seen in each ovary. No adnexal masses are seen. No cystic lesions measu ring greater than 3 cm. Other: No pathologic free abdominal or pelvic fluid. IMPRESSION: Pelvic ultrasound without acute sonographic abnormalities. Right ovary not visualized on this examination. Reviewed by: Sheldon Yancey MD on 07/20/2023 10:01 PM PST Approved by: Sheldon Yancey MD on 07/20/2023 10:01 PM PST Station ID: [id number]
== END 2023-07-20 15:09 | disposition home or self-care (01) ==
LOC: DI 15:08
PROVIDERS: ATTEND Obstetrics & Gynecology
DX: N95.0 Postmenopausal bleeding (principal)

== ENCOUNTER 2023-08-26 09:31 | Outpatient (CLI) | payer BC ==
--- NOTE | 2023-08-26 10:27 | Ultrasound Report ---
PROCEDURE: Pelvic w/Transvaginal INDICATIONS: POST MENOPAUSAL BLEEDING TECHNIQUE: Real-time scanning was performed of the pelvic organs, with image documentation. Additional endovagi nal scanning was necessary due to incomplete visualization of the adnexal and endometrial structures by transabdominal scanning. COMPARISON: None. FINDINGS: Uterus: Uterus is ultrasound 07/20/2023. 09/25/2020 and normal in size at 10.2 x 4.7 x 5.5 cm. The myom etrium is heterogeneous. The endometrium measures 6 mm in combined thickness. Ovaries: Right ovary not visualized. Left ovary measures 2.6 x 1.4 x 1.4 cm, volume of 3 mL. No adnex al mass. Other: No pathologic free abdominal or pelvic fluid. IMPRESSION: Endometrial stripe measures 6 mm, abnormal in the setting of postmenopausal bleeding. Consider tissue sampling to exclude mass. Reviewed by: Chris Dhaliwal MD on 08/26/2023 10:26 AM PDT Approved by: Chris Dhaliwal MD on 08/26/2023 10:26 AM PDT Station ID: [id number]
== END 2023-08-26 09:32 | disposition home or self-care (01) ==
LOC: DI 09:31
PROVIDERS: ATTEND Obstetrics & Gynecology
DX: R93.89 Abnormal findings on diagnostic imaging of other specified body structures (principal); N95.0 Postmenopausal bleeding

== ENCOUNTER 2023-09-04 08:36 | Outpatient (CLI) | payer BC ==
--- NOTE | 2023-09-04 09:14 | Sleep Patient Instructions ---
Sleep Center Visit Summary - Patient Visit Information Reason for Visit: Annual follow-up - Patient Instructions Additional Instructions: You will continue with CPAP therapy with pressure set at 7-9 cmH2O. A supply prescription will be updated with your DME. We encourage you to continue to try to lose weight. Please follow up with the sleep care office in 1 year. - Clinic Information Contact: [facility] [address] [place] [address] [email or web address] T: [phone]
--- NOTE | 2023-09-04 09:16 | SLEEP CARE CONSULTATION ---
Information from patient questionnaire entered by Shira Baez. I have reviewed and concur with the information entered by Shira Baez. This document represents the service I personally performed and the decisions made by , Jemima Clinton ARNP. History of Present Illness Service Date and Time: 09/04/2023 0836 Previous diagnosis: Moderate, Obstructive Sleep Apnea-Hypopnea Syndrome AHI: 15.8 (in 2009) Reason for follow up: annual (LAST SEEN 08/2022) Equipment type: CPAP (Resmed Airsense 11, s/u 03/2022) Equipment obtained from: [employer] (getting supplies as needed) Mask style: Nasal pillows (extra small cushion) Backup mask available: Yes Last cushion change: 17 days ago [facility] sleep [facility]: Yes [email or web address] HPI additional information: RAMYA LEVY was diagnosed to have moderate, AHI 15.8, obstructive sleep apnea-hypopnea syndrome and returned today for CPAP therapy annual follow-up. Sleep Study - Results Prior sleep [facility]: Yes [facility] Compl[facility] Data - Data Reviewed with Patient Average duration of nightly device use: 8 HRS 42 MINS Compliance rate %: 99 (09/02/22-09/01/23; 363/365 days used) Current pressure setting (cmH2O): 7-9 Average residual AHI: 1.3 Central apnea: 0 Obstructive apnea: 0.3 Average large leak: 7.8 L/min Subjective Missed days of use due to: reports: illness Patient concerns: denies: aerophagia, mask discomfort, air blowing in eyes, mask leak noise, condensation in mask/hose, nasal congestion, dry mouth, nose, throat, epistaxis Observed to snore while using device: No Current pressure setting perceived as: comfortable On therapy, patient: reports: sleeping better, awakening more refreshed, being more awake and alert during the day, more rested overall. denies: drowsiness while driving Initial [place] Sleepiness Scale score: 7 (in 2009) Current [place] Sleepiness Scale score: 5 (09/04/23) Allergies and Home Medications Known drug allergies: Yes (as listed) Drug allergies reviewed: Yes Home medication list reviewed: Yes (Losartan increased to 100 mg daily) Allergy and home medication list: Allergies amoxicillin Adverse Reaction (Verified 09/02/23 09:10) Cramps Review of Systems Review of systems same as previous: No (POST MEN BLEEDING, CATARACTS) Physical Exam Vital signs obtained and entered by: SHIRA Bauer MA Blood Pressure: 158/88 (RIGHT ARM) Cuff size: long Heart Rate: 67 O2 Saturation: 97 Height: 5 ft 8 in Weight: 305 lb 9.6 oz Weight change since last visit: 10 lb gain Body Mass Index: 46.4 BMI Classification: Morbidly Obese Impression and Plan 1. Obstructive Sleep Apnea-Hypopnea Syndrome, moderate, with good treatment co mpliance and good apnea control. On CPAP therapy, the patient has better sleep quality and is more rested overall. Patient has significant improvement of their sleep apnea and is satisfied with current CPAP therapy. Patient denies problems with oral dryness, nasal congestion, epistaxis, skin irritation or aerophagia. Patient's apnea severity and rationale for treatment to reduce apnea, improve sleep quality and reduce cardiovascular and cerebrovascular events was reviewed. I also reviewed the benefit of consistent device use of CPAP for hypertension, depression. 2. Obesity, unspecified. Currently patients BMI is 46.4. Obesity increases the risk of apnea, CPAP pressure requirements and overall health risks especially cardiovascular and diabetes. Thus patient is advised to lose weight. * Continue auto CPAP pressure at 7-9 cmH2O * Update supply prescription * Notify me if snoring with mask or feeling that the pressure is too much or too little * Attempt to lose weight * Call this office if any problems using CPAP * Return for follow up in 12 months, or sooner if concerns arise Counseling Topics: Spare mask, Weight loss health impact Prescriptions: Device supplies Follow up with Sleep Care in: 1 year Visit Type: In Office Time Spent with Patient (minutes): 20 Provider Statement: I spent 100% of the Face to Face Visit with the patient with greater than 50% spent counseling the patient and coordination of care.
[2023-09-04 09:23] VITALS: BP 158/88; O2SAT 97
== END 2023-09-04 08:37 | disposition home or self-care (01) ==
LOC: SC 08:36
PROVIDERS: ATTEND Nurse Practitioner Family
DX: G47.33 Obstructive sleep apnea (adult) (pediatric) (principal); E66.01 Morbid (severe) obesity due to excess calories; Z68.42 Body mass index [BMI] 45.0-49.9, adult
CPT/HCPCS: 99212; 99213

== ENCOUNTER 2023-10-01 09:39 | Day surgery (SDC) | payer BC ==
[2023-10-01] MEDS: ACETAMINOPHEN 325 MG TABLET PO ONE (10:10)
[2023-10-01] MEDS: LACTATED RINGERS 1,000 ML IV ONE ×2 (10:13→12:37)
--- NOTE | 2023-10-01 10:46 | ANESTHESIA ---
Pre-Anesthesia VS, & Labs - Diagnosis post menopausal bleeding - Procedure hysterscopy, myosure d&c Vital Signs: Temp Pulse Resp BP Pulse Ox O2 Flow Rate 36.8 C 70 17 147/84 H 97 10/01/23 10:15 10/01/23 10:15 10/01/23 10:15 10/01/23 10:15 10/01/23 10:15 Height: 5 ft 9 in Weight (kg): 138.5 kg Body Mass Index: 45.1 BMI Classification: Morbidly Obese - NPO >8 hours - Is Patient ?: No Home Medications and Allergies Metoprolol Succinate [Toprol Xl] 25 mg PO DAILY 05/16/20 Simvastatin [Zocor] 40 mg ORAL DAILY 05/16/20 Venlafaxine ER [Effexor ER] 150 mg PO DAILY 05/16/20 Aspirin [[place] Aspirin] 81 mg PO DAILY 01/31/23 Levothyroxine [Synthroid] 175 mcg PO QDAC 01/31/23 Losartan [Cozaar] 100 mg PO DAILY 01/31/23 Niacin (Inositol Niacinate) [Niacin 500 mg Capsule] 1,000 mg PO DAILY 01/31/23 Potassium Chloride 10 meq PO DAILY 01/31/23 Allergies/Adverse Reactions: Allergies Allergy/AdvReac Type Severity Reaction Status Date / Time lisinopril AdvReac Intermediate cough Verified 09/23/23 12:03 amoxicillin AdvReac Cramps Verified 09/04/23 08:43 Anes History & Medical History - Anesthetic History Anesthesia Complications: reports: No previous complications - Medical History Cardiovascular: reports: Hypertension, High cholesterol, Murmur (history of moderate aortic stenosis) Pulmonary: reports: Sleep apnea, CPAP use Gastrointestinal: reports: Colon polyps Urinary: reports: None Neuro: reports: None Musculoskeletal: reports: None, Chronic back pain Endocrine/Autoimmune: reports: None Blood Disorders: reports: None Skin: reports: None Smoking Status: Never smoker Psychosocial: reports: No issues indicated History of Cancer?: No - Surgical History General: reports: Colonoscopy, Other Eyes Ears Nose Throat (EENT): reports: Cataracts Gynecologic: reports: section, Dilation and currettage, Hysterectomy Exam General: Alert, Oriented x3, Cooperative, No acute distress Dental: WNL Mouth Openin Fingerbreadth Neck Mobility: Normal Mallampati classification: III Thyromental Distance: 4-6 cm Mental/Cognitive Status: Alert/Oriented X3, Normal for patient Plan Anesthesia Type: General Consent for Procedure(s) Verified and Reviewed: Yes Code Status: Attempt Resuscitation ASA classification: 3-Severe systemic disease Is this case an emergency?: No
[2023-10-01] MEDS ORDERED: MIDAZOLAM 2 MG/2 ML VIAL ONE (11:15)
[2023-10-01] MEDS ORDERED: PROPOFOL 200 MG/20 ML VIAL IVP ONE (11:15)
[2023-10-01] MEDS ORDERED: fentaNYL 100 MCG/2 ML VIAL ONE (11:15)
[2023-10-01] MEDS ORDERED: LIDOCAINE-PF 2% 10 ML AMP SUBQ ONE (11:23)
[2023-10-01] MEDS ORDERED: ONDANSETRON 4 MG/2 ML VIAL ONE (11:44)
[2023-10-01] MEDS ORDERED: DEXAMETHASONE 4 MG/ML VIAL ONE (11:44)
[2023-10-01] MEDS ORDERED: KETOROLAC 30 MG/ML VIAL ONE (12:25)
--- NOTE | 2023-10-01 12:29 | OPERATIVE REPORT ---
Operative Report - General Planned Procedure: hysteroscopy D&C Pre-Op Diagnosis: PMB Procedure Performed: HYSTEROSCOPY D&C Post Op Diagnosis: same - Procedure Note Primary Surgeon: Lidya Finn MD Anesthesia Provider: Archie Brown CRNA Anesthesia Technique: General LMA Pathology: endometrial curettings. IV Fluids (mL): 400 Estimated Blood Loss (mL): 5 Urine Output (mL): 0 Indications: post menopausal bleeding with thick endometrial stripe. Findings: 2 very small polyps at anterior of uterus. removed. Complications: 0 - Other Other Information/Narrative: INDICATION FOR PROCEDURE: Patient is 58 yo with postmenopausal bleeding. BMI is 45. She had a hysteroscopy with D&C by Dr. Da Silva in May. She had polyps removed at that time. After surgery she continued to have bleeding. ultrasound was done and her endometrial stripe continues to be more the 5 mm. She is here for another hysteroscopy. DESCRIPTION OF PROCEDURE: The patient was brought to the operating room where general LMA anesthesia was administered. She was prepped and draped in normal sterile fashion with her legs in [place] stirrups. She had sequential compression devices on her lower extremities. She received no pre-operative antibiotics. Exam under anesthesia was done. Speculum was placed. Cervix was grasped with a tenaculum. The cervix was dilated to allow passage of a 6 mm hysteroscope. This was placed and saline was used as a distending medium, and the cavity was examined with the above findings. Tubal ostia were not visualized, but I was sure that I was in the cavity. There were 2 small polyps at the top of the uterus. These were removed under direct visualization with the Myosure Lite. The rest of the endometrial lining was somewhat fluffy. The Myosure was used to sample the entire cavity. Sharp curettage was then performed. FLUID DEFICIT: <500 mL. The patient had anesthesia reversed, LMA removed and she was brought to the recovery room in stable condition. She will be discharged home when awake and stable. Counts were correct.
[2023-10-01] MEDS ORDERED: fentaNYL 100 MCG/2 ML VIAL IVP PRN (12:45)
[2023-10-01] MEDS ORDERED: ATROPINE ABBOJECT 1 MG/10 ML SYRINGE IVP PRN (12:45)
[2023-10-01] MEDS ORDERED: METOCLOPRAMIDE 10 MG/2 ML VIAL IVP PRN (12:45)
[2023-10-01] MEDS ORDERED: NALOXONE 0.4 MG/ML VIAL IVP PRN (12:45)
[2023-10-01] MEDS ORDERED: ePHEDrine 50 MG/ML VIAL IVP PRN (12:45)
[2023-10-01] MEDS ORDERED: MORPHINE 2 MG/ML CARPUJECT IVP PRN (12:45)
[2023-10-01] MEDS ORDERED: ONDANSETRON 4 MG/2 ML VIAL IVP PRN (12:45)
[2023-10-01] MEDS ORDERED: HYDROmorphone 0.5 MG/0.5 ML SYRINGE IVP PRN (12:45)
[2023-10-01] MEDS ORDERED: LACTATED RINGERS 1,000 ML IV SCH (13:00)
[2023-10-01 13:08] VITALS: O2SAT 96
--- NOTE | 2023-10-01 13:12 | ANESTHESIA POST OP EVALUATION ---
Anesthesia Post Eval - Post Anesthesia Eval Vitals: Last Vital Signs Temp 36.3 C L 10/01/23 13:09 Pulse 66 10/01/23 13:09 Resp 16 10/01/23 13:09 BP 154/91 H 10/01/23 13:09 Pulse Ox 96 10/01/23 13:09 O2 Flow Rate CV Function Including HR & BP: Stable Pain Control: Satisfactory Nausea & Vomiting: Negative Mental Status: Baseline Respiratory Status: Airway Patent Hydration Status: Satisfactory Anesthesia Complications: None
[2023-10-01 13:18] VITALS: BP 154/91
== END 2023-10-01 09:40 | disposition home or self-care (01) ==
LOC: SDS 09:39
PROVIDERS: ATTEND Obstetrics & Gynecology
PROC: 0UB98ZZ Excision of Uterus, Via Natural or Artificial Opening Endoscopic (ICD-10-PCS; principal; 2023-10-01 11:15)
DX: N95.0 Postmenopausal bleeding (principal); N84.0 Polyp of corpus uteri; R93.89 Abnormal findings on diagnostic imaging of other specified body structures; E66.01 Morbid (severe) obesity due to excess calories; I10 Essential (primary) hypertension; G47.30 Sleep apnea, unspecified; Z68.42 Body mass index [BMI] 45.0-49.9, adult
CPT/HCPCS: 58558; A9270; J7120

== ENCOUNTER 2023-11-06 09:00 | Outpatient (CLI) | payer BC ==
[2023-11-06 09:27] LABS: CALCIUM 9.9 mg/dL (8.5-10.3); CREATININE 0.8 mg/dL (0.6-1.3); POTASSIUM 4.2 mmol/L (3.5-4.5)
== END 2023-11-06 09:01 | disposition home or self-care (01) ==
LOC: LAB 09:00
PROVIDERS: ATTEND Family Medicine
DX: I10 Essential (primary) hypertension (principal)
CPT/HCPCS: 36415; 80048

== ENCOUNTER 2024-01-18 13:03 | Emergency (ER) | payer BC ==
--- NOTE | 2024-01-18 13:24 | ED Physician Documentation ---
PD HPI CHEST PAIN - Stated complaint Stated Complaint: CHEST PX,LT ARM PX - Chief complaint Chief Complaint: Cardiac - Additional information Additional information: 58-year-old female with history of heart murmur, enlarged heart valve, hyper tension, hypercholesterolemia, sleep apnea, obesity presents emergency department for chest pain. Patient says that she had a normal morning went for a beach walk and was driving home and started to feel some mid chest twinges that radiated to her left armpit. She said that she is experienced symptoms like this in the past but never this strong. She just recently had a outpatient stress test with her [place] primary care provider Dr. Bray has not heard the results but has an appointment with her primary care provider on Saturday for further evaluation of this. She has no dizziness no shortness of breath. No unilateral leg tenderness or pain she is not any supplemental hormones and no recent long travel. 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: section, Dilation and currettage, Hysterectomy HEENT: Cataracts - Present Medications Home Medications: Ambulatory Orders Medication Instructions Recorded Confirmed Metoprolol Succinate [Toprol Xl] 25 mg PO DAILY 05/16/20 09/23/23 Simvastatin [Zocor] 40 mg ORAL DAILY 05/16/20 09/23/23 Venlafaxine ER [Effexor ER] 150 mg PO DAILY 05/16/20 09/23/23 Aspirin [Parmer Aspirin] 81 mg PO DAILY 01/31/23 09/23/23 Levothyroxine [Synthroid] 175 mcg PO QDAC 01/31/23 09/23/23 Losartan [Cozaar] 100 mg PO DAILY 01/31/23 09/23/23 Niacin (Inositol Niacinate) 1,000 mg PO DAILY 01/31/23 09/23/23 [Niacin 500 mg Capsule] Potassium Chloride 10 meq PO DAILY 01/31/23 09/23/23 - Allergies Allergies/Adverse Reactions: Allergies Allergy/AdvReac Type Severity Reaction Status Date / Time lisinopril AdvReac Intermediate cough Verified 01/18/24 13:23 amoxicillin AdvReac Cramps Verified 01/18/24 13:23 - Social History Does the pt smoke?: No Smoking Status: Never smoker Does the pt drink ETOH?: Yes Does the pt have substance abuse?: No - Immunizations Immunizations are current?: Yes - POLST Patient has POLST: Yes Results - Vitals Vitals: Vital Signs - 24 hr 01/18/24 01/18/24 01/18/24 13:06 13:30 13:39 Temperature 36.4 C L Heart Rate 81 77 71 Respiratory 15 21 19 Rate Blood Pressure 152/71 H 109/88 H 109/88 H O2 Saturation 99 94 97 01/18/24 01/18/24 01/18/24 14:09 14:30 15:00 Temperature Heart Rate 73 71 65 Respiratory 20 18 15 Rate Blood Pressure 135/73 H 134/73 H 129/75 O2 Saturation 95 94 94 01/18/24 16:00 Temperature Heart Rate 68 Respiratory 21 Rate Blood Pressure 143/81 H O2 Saturation 95 Oxygen O2 Source Room air - EKG (time done) 1314 EKG releavant findings:: EKG personally interpreted by author of this note. Relevant findings are: Rate: Rate (enter#) (73) Rhythm: NSR Excello: Normal Intervals: Prolonged ND (ND 265) QRS: LVH Ischemia: Normal ST segments Computer interpretation: Agree with computer - Labs Labs: Laboratory Tests 01/18/24 01/18/24 01/18/24 13:29 13:29 15:38 WBC 7.7 RBC 4.35 Hgb 12.9 Hct 39.2 MCV 90.1 MCH 29.7 MCHC 32.9 RDW 12.8 Plt Count 175 MPV 13.2 H Neut # (Auto) 4.9 Lymph # (Auto) 1.7 Ocean # (Auto) 0.8 Eos # (Auto) 0.2 Baso # (Auto) 0.1 Absolute Nucleated RBC 0.00 Nucleated RBC % 0.0 Sodium 138 Potassium 3.7 Chloride 105 Carbon Dioxide 25 Anion Gap 8.0 BUN 18 Creatinine 0.8 Estimated GFR (MDRD) 74 L Glucose 103 Calcium 9.4 Total Bilirubin 0.7 AST 20 ALT 23 Alkaline Phosphatase 67 Troponin I High Sens 3.4 3.9 Total Protein 7.4 Albumin 4.1 Globulin 3.3 Albumin/Globulin Ratio 1.2 Lipase 23 - Rads (name of study) Chest x-ray Relevant Findings:: Final report received, EMP independent interpretation of test, Other (No acute cardiopulmonary process heart size is at the upper limit of normal slightly increased compared to prior chest x-ray from July 2020) PD Medical Decision Making - ED course ED course: 58-year-old female presents emergency department for left chest pain. Exam without evidence of volume overload so doubt heart failure. EKG without signs of active ischemia. Given the timing of pain to ER presentation, delta troponin was negative so doubt NSTEMI. Presentation not consistent with acute PE (Wells low risk), pneumothorax (not visualized on chest xr), thoracic aortic dissection, pericarditis, tamponade, pneumonia (no infectious symptoms, she does have mildly increased cardiomegaly in comparison to imaging complete in July of 2020), myocarditis (no recent illness, neg trop). HEART score:4 so plan to admit discharge patient home. Pt has close follow up with PCP and has an appt this Saturday to go over her recent stress test results. She is given Strict ER return precautions all questions answered patient safe for discharge at this time. Departure - Departure Disposition: Home, Self Care Clinical Impression: Chest pain Qualifiers: Chest pain type: unspecified Qualified Code(s): R07.9 - Chest pain, unspecified Instructions: ED Chest Pain Atypical Unkn Cause Comments: Thank you for trusting us with your care. We have completed labs, EKG, chest x- ray and we are not seeing any acute abnormalities or findings that could indicate an acute heart attack. As we discussed if your symptoms come back or if you are starting develop any worsening shortness of breath, dizziness or vision changes or any other concerning symptoms please do not hesitate report back to the emergency department. Please Make every attempt to not miss your appointment with your primary care provider on Saturday and speak with possible cardiology referral for further evaluation of your enlarged heart. Forms: PCP List Discharge Date/Time: 01/18/24 16:36
[2024-01-18 13:36] LABS: BASOPHILS # (AUTO) 0.1 10^3/uL (0.0-0.1); BASOPHILS % (AUTO) 0.8 %; EOSINOPHILS # (AUTO) 0.2 10^3/uL (0.0-0.7); EOSINOPHILS % (AUTO) 2.9 %; HCT - HEMATOCRIT 39.2 % (37.0-47.0); HGB - HEMOGLOBIN 12.9 g/dL (12.0-16.0); LYMPHOCYTES # (AUTO) 1.7 10^3/uL (1.5-3.5); LYMPHOCYTES % (AUTO) 21.9 %; MEAN CORPUSCULAR HEMOGLOBIN 29.7 pg (27.0-31.0); MEAN CORPUSCULAR HGB CONC 32.9 g/dL (32.0-36.0); MEAN CORPUSCULAR VOLUME 90.1 fL (81.0-99.0); MEAN PLATELET VOLUME 13.2 fL (7.9-10.8); MONOCYTES # (AUTO) 0.8 10^3/uL (0.0-1.0); MONOCYTES % (AUTO) 10.8 %; NEUTROPHILS # (AUTO) 4.9 10^3/uL (1.5-6.6); NEUTROPHILS % (AUTO) 63.2 %; PLT - PLATELET COUNT 175 10^3/uL (130-450); RED BLOOD COUNT 4.35 10^6/uL (4.20-5.40); RED CELL DISTRIBUTION WIDTH 12.8 % (12.0-15.0); WHITE BLOOD COUNT 7.7 x10^3/uL (4.8-10.8)
[2024-01-18 13:51] LABS: ALBUMIN 4.1 g/dL (3.2-5.5); ALBUMIN/GLOBULIN RATIO 1.2 (1.0-2.2); BILIRUBIN,TOTAL 0.7 mg/dL (0.2-1.0); CALCIUM 9.4 mg/dL (8.5-10.3); CREATININE 0.8 mg/dL (0.6-1.3); POTASSIUM 3.7 mmol/L (3.5-4.5); TOTAL PROTEIN 7.4 g/dL (6.4-8.9)
[2024-01-18 13:54] LABS: TROPONIN I HIGH SENSITIVITY 3.4 ng/L (2.3-14.8)
--- NOTE | 2024-01-18 14:35 | XRAY Report ---
PROCEDURE: Chest 1V INDICATIONS: Chest Pain TECHNIQUE: One view of the chest was acquired. COMPARISON: Chest radiograph on August 12, 2020. FINDINGS: Surgical changes and devices: None. Lungs and pleura: No pleural effusions or pneumothorax. Lungs are clear. Mediastinum: Mediastinal contours appear normal. Heart size is at the upper limits of normal. Bones and chest wall: No suspicious bony lesions. Overlying soft tissues appear unremarkable. IMPRESSION: 1.No acute cardiopulmonary process. 2.Heart size is at the upper limits of normal, slightly increased compared to prior chest radiograph dated August 12, 2020. Reviewed by: López Zelaya MD on 01/18/2024 1:34 PM ANTONIO Approved by: López Zelaya MD on 01/18/2024 1:34 PM ANTONIO Station ID: [id number]
[2024-01-18 16:48] VITALS: BP 143/81; O2SAT 95
== END 2024-01-18 16:36 | disposition home or self-care (01) ==
LOC: ED 13:03
DX: R07.9 Chest pain, unspecified (principal); I10 Essential (primary) hypertension; E78.00 Pure hypercholesterolemia, unspecified; G47.33 Obstructive sleep apnea (adult) (pediatric); Z79.82 Long term (current) use of aspirin; F32.A Depression, unspecified; I38 Endocarditis, valve unspecified
CPT/HCPCS: 36415; 80053; 83690; 84484; 85025; 93005; 99284